=== PATIENT | female | born 1990 | race Caucasian/White ===

== ENCOUNTER 2022-09-18 17:15 | Emergency (ER) | payer OTHER ==
[2022-09-18 17:31] VITALS: BP 123/65
--- NOTE | 2022-09-18 18:07 | ED Physician Documentation ---
PD HPI HEENT - Stated complaint Stated Complaint: COUGH/FEVER - Chief complaint Chief Complaint: Resp - History obtained from History obtained from: Patient - Additional information Additional information: The patient comes to the emergency department chief complaint of escalating cough, fevers at home, and thick green sputum for the last 24 hours. She states she developed a URI about a week ago and felt as though she was getting better, but then cough began to escalate and she began to have a burning pain in her chest and began coughing up having green sputum. She is a former smoker but quit 6 years ago. She states that she has measured some fevers at home but that she was no longer febrile here. She is 25 weeks . No other complaints at this time. She states she has had a lot of respiratory infections. PD PAST MEDICAL HISTORY - Present Medications Home Medications: Ambulatory Orders Medication Instructions Recorded Confirmed Azithromycin [Zithromax] 0 mg PO DAILY #6 tablet 09/18/22 Omeprazole Magnesium 20 mg PO BID 09/18/22 09/18/22 - Allergies Allergies/Adverse Reactions: Allergies Allergy/AdvReac Type Severity Reaction Status Date / Time No Known Drug Allergies Allergy Verified 09/18/22 17:24 PD ED PE NORMAL - Vitals Vital signs reviewed: Yes - General General: Alert and oriented X 3, No acute distress, Well developed/nourished - HEENT HEENT: Atraumatic, PERRL, EOMI, Moist mucous membranes - Neck Neck: Supple, no meningeal sign - Cardiac Cardiac: RRR, No murmur, Strong equal pulses - Respiratory Respiratory: No respiratory distress, Clear bilaterally - Abdomen Abdomen: Soft, Non tender, Non distended - Derm Derm: Normal color, Warm and dry, No rash - Extremities Extremities: No deformity - Neuro Neuro: Alert and oriented X 3 - Psych Psych: Normal mood, Normal affect Results - Vitals Vitals: Oxygen O2 Source Room air - Labs Labs: Laboratory Tests 09/18/22 17:40 Nasal Adenovirus (PCR) NOT DETECTED Nasal B. parapertussis DNA (PCR) NOT DETECTED Nasal Coronavir 229E PCR NOT DETECTED Nasal Coronavir HKU1 PCR NOT DETECTED Nasal Coronavir NL63 PCR NOT DETECTED Nasal Coronavir OC43 PCR NOT DETECTED Nasal Enterovir/Rhinovir PCR DETECTED A Nasal Influenza B PCR NOT DETECTED Nasal Influenza A PCR NOT DETECTED Nasal Parainfluen 1 PCR NOT DETECTED Nasal Parainfluen 2 PCR NOT DETECTED Nasal Parainfluen 3 PCR NOT DETECTED Nasal Parainfluen 4 PCR NOT DETECTED Nasal RSV (PCR) NOT DETECTED Nasal B.pertussis DNA PCR NOT DETECTED Nasal C.pneumoniae (PCR) NOT DETECTED Jonathan Human Metapneumo PCR NOT DETECTED Nasal M.pneumoniae (PCR) NOT DETECTED Nasal SARS-CoV-2 (PCR) NOT DETECTED PD Medical Decision Making - ED course Complexity details: reviewed results, re-evaluated patient, considered differential, d/w patient ED course: Given her fever, thick green sputum which I was able to view a picture of on her phone, and the uptake and cough, I felt the patient should be treated with antibiotics. A prescription was sent to the pharmacy of her choice for this. We have discussed symptomatic management at home and the usual indications for return. Departure - Departure Disposition: 01 Home, Self Care Clinical Impression: Bronchitis Upper respiratory tract infection Qualifiers: URI type: unspecified viral URI Qualified Code(s): J06.9 - Acute upper respira tory infection, unspecified Condition: Stable Instructions: ED Upper Resp Infec Abx Tx, ED Viral Syndrome Prescriptions: Azithromycin [Zithromax] 0 mg PO DAILY #6 tablet Comments: Your lungs sound clear, but given that you have had a sudden uptick in sputum production and the appearance of your sputum, we will go ahead and start you on antibiotics. Your prescription has been electronically transmitted to the [facility] in [place]. You should pick this up tonight or tomorrow morning and start it. Please drink plenty of fluids. You may take Tylenol as needed for fever or other discomforts. Discharge Date/Time: 09/18/22 18:13
[2022-09-18 18:36] LABS: CORONAVIRUS 229E-RESP PCR NOT DETECTED; CORONAVIRUS HKU1-RESP PCR NOT DETECTED; CORONAVIRUS NL63-RESP PCR NOT DETECTED; CORONAVIRUS OC43-RESP PCR NOT DETECTED; HUMAN METAPNEUMOVIRUS NOT DETECTED; SARS-CoV-2 -RESP PCR PANEL NOT DETECTED
[2022-09-18 18:37] LABS: B. PARAPERTUSSIS- RESP PCR PAN NOT DETECTED; B. PERTUSSIS- RESP PCR PANEL NOT DETECTED; C. PNEUMONIAE- RESP PCR PANEL NOT DETECTED; INFLUENZA A- RESP PCR PANEL NOT DETECTED; INFLUENZA B - RESP PCR PANEL NOT DETECTED; M. PNEUMONIAE- RESP PCR PANEL NOT DETECTED; PARAINFLUENZA VIRUS 1 NOT DETECTED; PARAINFLUENZA VIRUS 2 NOT DETECTED; PARAINFLUENZA VIRUS 3 NOT DETECTED; PARAINFLUENZA VIRUS 4 NOT DETECTED; RHINOVIRUS/ENTEROVIRUS DETECTED; RSV- RESP PCR PANEL NOT DETECTED
== END 2022-09-18 18:13 | disposition home or self-care (01) ==
LOC: ED 17:15
DX: J40 Bronchitis, not specified as acute or chronic (principal); J06.9 Acute upper respiratory infection, unspecified; Z20.822 Contact with and (suspected) exposure to COVID-19; Z87.891 Personal history of nicotine dependence
CPT/HCPCS: 87633; 99283

== ENCOUNTER 2022-11-07 08:00 | Outpatient (CLI) | payer OTHER | END 2022-11-07 23:59 | disposition home or self-care (01) | LOC: LAB.WC 08:00 | PROVIDERS: ATTEND Obstetrics & Gynecology | DX: Z36.85 Encounter for antenatal screening for Streptococcus B (principal) | CPT/HCPCS: 87797 ==

== ENCOUNTER 2022-11-07 12:26 | Outpatient (CLI) | payer OTHER ==
[2022-11-07 12:51] LABS: BASOPHILS % (AUTO) 0.3 %; EOSINOPHILS # (AUTO) 0.1 10^3/uL (0.0-0.7); EOSINOPHILS % (AUTO) 0.6 %; HCT - HEMATOCRIT 33.9 % (37.0-47.0); LYMPHOCYTES # (AUTO) 1.8 10^3/uL (1.5-3.5); LYMPHOCYTES % (AUTO) 15.5 %; MEAN CORPUSCULAR HGB CONC 32.4 g/dL (32.0-36.0); MEAN CORPUSCULAR VOLUME 89.4 fL (81.0-99.0); MEAN PLATELET VOLUME 10.9 fL (7.9-10.8); MONOCYTES # (AUTO) 0.5 10^3/uL (0.0-1.0); MONOCYTES % (AUTO) 4.4 %; NEUTROPHILS # (AUTO) 8.8 10^3/uL (1.5-6.6); NEUTROPHILS % (AUTO) 78.1 %; PLT - PLATELET COUNT 252 10^3/uL (130-450); RED BLOOD COUNT 3.79 10^6/uL (4.20-5.40); WHITE BLOOD COUNT 11.3 x10^3/uL (4.8-10.8)
[2022-11-08 06:10] LABS: HBsAG SCREEN Negative (Negative); HCV AB Non Reactive (Non Reactive); HIV SCREEN 4TH GENERATION Non Reactive (Non Reactive)
[2022-11-08 08:10] LABS: RPR Non Reactive (Non Reactive); VARICELLA-ZOSTER AB IGG <135 index (Immune >165)
== END 2022-11-07 12:27 | disposition home or self-care (01) ==
LOC: LAB 12:26
PROVIDERS: ATTEND Obstetrics & Gynecology
DX: Z34.90 Encounter for supervision of normal pregnancy, unspecified, unspecified trimester (principal); Z36.89 Encounter for other specified antenatal screening
CPT/HCPCS: 36415; 85025; 86592; 86762; 86787; 86803; 86850; 86900; 86901; 87340; 87389

== ENCOUNTER 2022-11-22 19:44 | Outpatient (CLI) | payer OTHER ==
--- NOTE | 2022-11-23 00:51 | Ultrasound Report ---
PROCEDURE: OB Detailed Eval INDICATIONS: SUPERVISION OF OUTSIDE/PRIOR DATING DATA: Last menstrual period (LMP): Unknown. First dating scan (date and location): Today 11/22/2022. Estimated date of delivery (MAITE) from first dating scan: 12/26/2022. TECHNIQUE: Real-time scanning was performed of the fetus, with image documentation and biometric measurements. COMPARISON: None. FINDINGS: General: A single living intrauterine gestation is present. Presentation: Transverse Placenta: Placental position is posterior, without previa. Amniotic fluid index: 15.7, within normal limits for gestational age. heart rate: 152 beats per minute. Maternal cervical canal: 5.4 cm long; normal length is 2.5 cm or more. biometrics: Biparietal diameter: 8.7 cm, 35 weeks Head circumference: 32.4 cm, 36 weeks and 4 days Abdominal circumference: 30.6 cm, 34 weeks and 4 days Femur length: 6.5 cm, 33 weeks and 3 days Estimated gestational age from initial scan: not applicable. Composite gestational age from present scan: 35 weeks and 1 day Estimated weight and percentile: 2441.5 g Measurement variability in biometric dating: +/- 10 days from 12-20 weeks gestation, +/- 2 weeks from 20-30 weeks gestation, +/- 3 weeks at 30 weeks gestation or later. Limited anatomic survey due to large gestational age and position. Placental cord insertion is seen and unremarkable. Three-vessel cord is present. Abdominal cord inser tion is seen is unremarkable. Left-sided stomach is present. Spine is grossly normal, but not completely evaluated. Kidneys are wit hin normal limits. Posterior fossa structures are unremarkable. Lateral ventricle measures 7 mm. Nose /lips/profile appear unremarkable on limited evaluation. Bladder appears unremarkable. Ovaries are unremarkable. IMPRESSION: Living intrauterine gestation at an ultrasound age of 35 weeks and 1 day. No priors are available for review. Limited anatomic survey due to large gestational age and position. Reviewed by: Jak Watson MD on 11/23/2022 12:50 AM PDT Approved by: Jak Watson MD on 11/23/2022 12:50 AM PDT Station ID: [id number]
== END 2022-11-22 19:45 | disposition home or self-care (01) ==
LOC: DI 19:44
PROVIDERS: ATTEND Obstetrics & Gynecology
DX: O09.93 Supervision of high risk pregnancy, unspecified, third trimester (principal); Z3A.35 35 weeks gestation of pregnancy

== ENCOUNTER 2022-11-23 09:27 | Outpatient (CLI) | payer OTHER ==
[2022-11-23 09:48] VITALS: BP 123/84
[2022-11-23] MEDS ORDERED: RHO(D) IMMUNE GLOBULIN 300 MCG SYRINGE IM ONE (09:54)
--- NOTE | 2022-11-23 10:18 | PROVIDER PROGRESS NOTE ---
- HPI Chief Complaint: Pain, non-labor Current : Vital Signs Temperature 98.5 F 11/23/22 09:38 Heart Rate 108 H 11/23/22 09:38 Respiratory Rate 22 11/23/22 09:38 Blood Pressure 123/84 H 11/23/22 09:38 Temperature 98.5 F 11/23/22 09:38 Heart Rate 108 H 11/23/22 09:38 Respiratory Rate 22 11/23/22 09:38 Blood Pressure 123/84 H 11/23/22 09:38 O2 Saturation If not protocol: Oxygen Flow, liters/minute - Procedures Service Date of procedure: 11/23/22 (Read 11/23/2022) - Plan Plan: Patient is a 32-year-old G2, P1 at 35 weeks 2 days gestation by 35-week ultrasound presenting to triage for vaginal bulge. She says yesterday she was bearing down and felt a new bulge of tissue. She been constipated for several days and has not found relief from this. Had dating ultrasound yesterday placing her at 35 weeks 2 days, consistent with my bedside ultrasound done at 24 weeks. Will use this MAITE of 12/26/2022. She has good movement, no leaking, no vaginal bleeding. She denies headache, right upper quadrant pain, changes in vision. She does have insufficient care with only 2 OB visits. Physical Exam Constitutional: alert, no acute distress, well hydrated, well developed, well nourished, appropriate dress. Cardiovascular: Regular rate and rhythm. Respiratory: no respiratory distress. Abdomen: nondistended, nontender, no guarding. Psych: affect and mood appropriate, normal interaction, good eye contact. : Mild prolapse anterior and posteriorly. No leaking with Valsalva. SVE: 0/0/-3 NST: FHT: 140 bpm baseline, moderate variability, accelerations present, no decelerations. Reactive NST [place]: Quiescent Assessment and plan 32-year-old G2, P1 at 35 weeks 2 days gestation by 35-week ultrasound with vaginal prolapse 1. Vaginal prolapse: -Discussed the etiology of vaginal prolapse and that this will likely not improve significantly while she is . -Encouraged her to work on her constipation. This may help alleviate the bulge. -Plan to reassess after 2. Constipation -Encourage bowel regimen including stool softener and MiraLAX. Increase dietary fiber. Increase fibrous foods. 3. 35 weeks gestation -Follow-up with [facility] for routine care -Dated by ultrasound yesterday. MAITE 12/26/2022 4. Limited care - labs completed today. OGCT tolerance completed and normal. -A1c completed today. 5. Rh- -RhoGAM received today 6. presentation: -Transverse position last night. Discussed possible external cephalic version if still not cephalic at 37 weeks. -Reiterated the importance of routine visits so we can continue to assess this and her other issues.
[2022-11-23] MEDS: ONDANSETRON 4 MG/2 ML VIAL IVP PRN (10:46)
[2022-11-23] MEDS: RHO(D) IMMUNE GLOBULIN 300 MCG SYRINGE IVP ONE (10:47)
[2022-11-23 11:06] LABS: BASOPHILS % (AUTO) 0.4 %; EOSINOPHILS # (AUTO) 0.1 10^3/uL (0.0-0.7); EOSINOPHILS % (AUTO) 0.5 %; HCT - HEMATOCRIT 32.4 % (37.0-47.0); HGB - HEMOGLOBIN 10.5 g/dL (12.0-16.0); LYMPHOCYTES # (AUTO) 2.2 10^3/uL (1.5-3.5); LYMPHOCYTES % (AUTO) 19.4 %; MEAN CORPUSCULAR HEMOGLOBIN 28.1 pg (27.0-31.0); MEAN CORPUSCULAR HGB CONC 32.4 g/dL (32.0-36.0); MEAN CORPUSCULAR VOLUME 86.6 fL (81.0-99.0); MEAN PLATELET VOLUME 10.1 fL (7.9-10.8); MONOCYTES # (AUTO) 0.8 10^3/uL (0.0-1.0); MONOCYTES % (AUTO) 6.8 %; NEUTROPHILS % (AUTO) 71.7 %; PLT - PLATELET COUNT 327 10^3/uL (130-450); RED BLOOD COUNT 3.74 10^6/uL (4.20-5.40); RED CELL DISTRIBUTION WIDTH 13.5 % (12.0-15.0); WHITE BLOOD COUNT 11.2 x10^3/uL (4.8-10.8)
[2022-11-23 11:19] LABS: ALBUMIN 3.1 g/dL (3.2-5.5); ALBUMIN/GLOBULIN RATIO 0.9 (1.0-2.2); BILIRUBIN,TOTAL 0.5 mg/dL (0.2-1.0); CALCIUM 8.7 mg/dL (8.5-10.3); CREATININE 0.4 mg/dL (0.4-1.0); POTASSIUM 3.6 mmol/L (3.5-5.0); TOTAL PROTEIN 6.5 g/dL (6.7-8.2)
[2022-11-23 21:58] LABS: ESTIMATED AVERAGE GLUCOSE 91 mg/dL (70-100); HEMOGLOBIN A1c% 4.8 % (4.27-6.07)
== END 2022-11-23 12:45 | disposition home or self-care (01) ==
LOC: WFO 09:27 → FBP 09:34 → WFO 12:45
PROVIDERS: ATTEND Obstetrics & Gynecology
DX: O34.83 Maternal care for other abnormalities of pelvic organs, third trimester (principal); N81.10 Cystocele, unspecified; O99.613 Diseases of the digestive system complicating pregnancy, third trimester; K59.00 Constipation, unspecified; Z3A.35 35 weeks gestation of pregnancy
CPT/HCPCS: 59025; 80053; 82950; 83036; 85025; 96374; 96375; 99215

== ENCOUNTER 2022-12-09 21:14 | Outpatient (CLI) | payer OTHER ==
--- NOTE | 2022-12-10 14:42 | Ultrasound Report ---
PROCEDURE: OB F/U or Repeat INDICATIONS: SUPERVISION OF OUTSIDE/PRIOR DATING DATA: Last menstrual period (LMP): Unknown. LMP-based estimated date of delivery (MAITE): Unknown. First dating scan (date and location): 11/22/2022. Estimated date of delivery (MAITE) from first dating scan: 12/26/2022. The below data below was generated using the ultrasound MAITE of 12/26/2022 TECHNIQUE: Real-time scanning was performed of the fetus, with image documentation and biometric measurements. COMPARISON: OB ultrasound 11/22/2022 FINDINGS: General: A single living intrauterine gestation is present. Presentation: Vertex Placenta: Placental position is posterior, without previa. Amniotic fluid index: 19.4 cm, within normal limits for gestational age. heart rate: 150 beats per minute. Maternal cervical canal: 4.7 cm long; normal length is 2.5 cm or more. biometrics: Estimated gestational age from initial scan: 37 weeks 4 days Other: four-chamber heart and outflow tracts are within normal limits IMPRESSION: Single live intrauterine with ultrasound gestational age of 37 weeks 4 days. heart is visualized to be within normal limits. Reviewed by: Monse Moody MD on 12/10/2022 2:40 PM PDT Approved by: Monse Moody MD on 12/10/2022 2:40 PM PDT Station ID: [id number]
== END 2022-12-09 21:15 | disposition home or self-care (01) ==
LOC: DI 21:14
PROVIDERS: ATTEND Obstetrics & Gynecology
DX: O09.33 Supervision of pregnancy with insufficient antenatal care, third trimester (principal); Z3A.37 37 weeks gestation of pregnancy

== ENCOUNTER 2023-08-10 17:45 | Emergency (ER) | payer OTHER ==
[2023-08-10 18:10] VITALS: BP 115/70; O2SAT 100
[2023-08-10] MEDS ORDERED: AMOX/CLAV 875 MG/125 MG TABLET PO STA (18:12)
[2023-08-10] MEDS ORDERED: IBUPROFEN 800 MG TABLET PO STA (18:12)
[2023-08-10] MEDS ORDERED: oxyCODONE 5 MG TABLET PO STA (18:12)
[2023-08-10] MEDS ORDERED: oxyCODONE/ACET 5/325 Prepack 4 PO STA (18:12)
--- NOTE | 2023-08-10 18:13 | ED Physician Documentation ---
PD HPI HEENT - Stated complaint Stated Complaint: TOOTH PX - Chief complaint Chief Complaint: Heent - History obtained from History obtained from: Patient (Severe pain since last night from the right maxillary last molar. No facial swelling or fevers.) PD PAST MEDICAL HISTORY - Past Medical History Past Medical History: Yes Psych: ADD/ADHD Other Past Medical History: Sjorgorens - Past Surgical History Past Surgical History: No - Present Medications Home Medications: Ambulatory Orders Medication Instructions Recorded Confirmed Omeprazole Magnesium 20 mg PO BID 09/18/22 09/18/22 Amox/Clav 875/125 [Augmentin] 1 each PO Q12H #20 tablet 08/10/23 Ibuprofen [Motrin] 600 mg PO Q6H PRN #30 tab 08/10/23 Oxycodone HCl/Acetaminophen 1 - 2 each PO Q6H PRN #14 tablet 08/10/23 [Percocet 5-325 mg Tablet] - Allergies Allergies/Adverse Reactions: Allergies Allergy/AdvReac Type Severity Reaction Status Date / Time bunch Allergy Unknown Verified 11/23/22 10:16 Fish Containing Products Allergy Rash Verified 11/23/22 10:16 kiwi Allergy Unknown Verified 11/23/22 10:16 shellfish derived Allergy Rash Verified 11/23/22 10:16 tree and shrub pollen Allergy Respiratory Verified 11/23/22 10:16 salicylic acid AdvReac Intermediate Rash Verified 12/12/22 05:19 ibuprofen AdvReac Mild Nausea Verified 12/12/22 03:34 - Social History Does the pt smoke?: No Smoking Status: Never smoker PD ED PE NORMAL - Vitals Vital signs reviewed: Yes - General General: Alert and oriented X 3, No acute distress - HEENT HEENT: Other (There is a tender cavity in the right last molar posteriorly. No facial swelling, trismus, sublingual edema.) - Neck Neck: Supple, no meningeal sign, No bony TTP - Cardiac Cardiac: RRR, No murmur - Neuro Neuro: Alert and oriented X 3 Results - Vitals Vitals: Vital Signs - 24 hr 08/10/23 17:57 Temperature 36.7 C Heart Rate 102 H Respiratory 18 Rate Blood Pressure 115/70 O2 Saturation 100 Oxygen O2 Source Room air Departure - Departure Disposition: Home, Self Care Clinical Impression: Pain due to dental caries Condition: Good Record reviewed to determine appropriate education?: Yes Instructions: ED Tooth Pain Prescriptions: Amox/Clav 875/125 [Augmentin] 1 each PO Q12H #20 tablet Ibuprofen [Motrin] 600 mg PO Q6H PRN #30 tab PRN Reason: Pain Oxycodone HCl/Acetaminophen [Percocet 5-325 mg Tablet] 1 - 2 each PO Q6H PRN #14 tablet PRN Reason: pain Comments: I sent your prescription electronically to [facility] in [place]. It is very important that you follow-up with a dentist. When it comes to dental problems like yours, the emergency department can only offer a short-term solution to your long-term problem. I would recommend your first call be to the [facility] tomorrow as they do have active duty dentist there. Otherwise: A couple of low cost options for dental care include: [facility] in [place], calls [phone] for an appointment Or [facility] in [place], call [phone] for an appointment. I am prescribing a short course of narcotic pain medication for you. These are potentially dangerous and addictive medications that should be used carefully. These medications may constipate you. Take an sfep-eid-pdxyxyo stool softener (docusate) twice daily with plenty of water while taking these medications. If you go 24 hours without a bowel movement, take [id number] miralax, per package instructions. Do not drink or drive while taking these medications. If you received narcotic or sedating medications while in the emergency department, do not drive for 24 hours. Store this medication in a safe, secure place and out of reach of children. It is a violation of federal law to give or sell this medication to another person or to use in a manner other than prescribed. The ED will not refill narcotic prescriptions, including prescriptions lost or stolen. To dispose of unwanted medications: 1. [facility] provides a drop box for medication in pill form only (no liquids) 8:00 am to 4:30 p.m. Friday-Friday in the lobby of the [facility], [address] [place] [address]. Empty pills into ziplock bag before disposal. Call [phone] for information. 2.[employer] is a free service available to all [facility] residents. Go to [email or web address] Note that many narcotic pain relievers also contain Tylenol/acetaminophen. Please ensure that your total dose of acetaminophen from all sources does not exceed 3 g (3000 mg) per day. Forms: PCP List
== END 2023-08-10 18:32 | disposition home or self-care (01) ==
LOC: ED 17:45
DX: K08.89 Other specified disorders of teeth and supporting structures (principal)
CPT/HCPCS: 99282; 99283; A9270

== ENCOUNTER 2023-09-01 07:44 | Emergency (ER) | payer OTHER ==
[2023-09-01 08:17] VITALS: BP 105/64; O2SAT 100
--- NOTE | 2023-09-01 08:34 | ED Physician Documentation ---
PD YANDY HEENT - Stated complaint Stated Complaint: RT EAR PX - Chief complaint Chief Complaint: Heent - History obtained from History obtained from: Patient - Additional information Additional information: Patient is a 33-year-old female presenting for evaluation of right ear pain over the past 1 week. Patient states that she pulled a pillow father out of her ear 1 week ago. Since that time she has had some discomfort but it worsened yesterday. She was also recently seen here for dental pain and started on oxycodone and Augmentin for dental infection. She is on day 4 of the antibiotic. She states that after taking a bath yesterday her ear pain worsened.Patient believes that she is also 8 to 9 weeks . She has a history of an intrauterine demise last December at approximately 34 weeks gestation.She reports having ultrasounds done prior to that and reports a concern as she was told by an obstetrics tech that there was a mass they could see that was concerning for cancer. She states that she did not follow-up about this because she forgot. She was following with Dr. Padilla and does plan to establish care with him again for this .Denies vaginal bleeding, abdominal pain. Review of Systems Constitutional: denies: Fever Ears: reports: Ear pain Cardiac: denies: Chest pain / pressure Respiratory: denies: Dyspnea GI: denies: Abdominal Pain : denies: Dysuria PD PAST MEDICAL HISTORY - Past Medical History Past Medical History: Yes Psych: ADD/ADHD - Past Surgical History Past Surgical History: No - Present Medications Home Medications: Ambulatory Orders Medication Instructions Recorded Confirmed Amox/Clav 875/125 [Augmentin] 1 each PO Q12H #20 tablet 08/10/23 09/01/23 Ibuprofen [Motrin] 600 mg PO Q6H PRN #30 tab 08/10/23 09/01/23 Ofloxacin [Ofloxacin Otic drops] 10 drops RIGHTEAR DAILY 7 Days #5 09/01/23 ml - Allergies Allergies/Adverse Reactions: Allergies Allergy/AdvReac Type Severity Reaction Status Date / Time bunch Allergy Unknown Verified 11/23/22 10:16 Fish Containing Products Allergy Rash Verified 11/23/22 10:16 kiwi Allergy Unknown Verified 11/23/22 10:16 shellfish derived Allergy Rash Verified 11/23/22 10:16 tree and shrub pollen Allergy Respiratory Verified 11/23/22 10:16 salicylic acid AdvReac Intermediate Rash Verified 12/12/22 05:19 ibuprofen AdvReac Mild Nausea Verified 12/12/22 03:34 - Social History Does the pt smoke?: No Smoking Status: Never smoker Does the pt drink ETOH?: No Does the pt have substance abuse?: No PD ED PE NORMAL - General General: Alert and oriented X 3, No acute distress, Well developed/nourished - HEENT HEENT: Atraumatic, Moist mucous membranes, Pharynx benign, Other (Left TM intact, right TM intact, right ear canal with erythema and mild swelling) - Neck Neck: Supple, no meningeal sign, No bony TTP - Cardiac Cardiac: RRR, Strong equal pulses - Respiratory Respiratory: No respiratory distress, Clear bilaterally - Derm Derm: Warm and dry - Neuro Neuro: Normal speech Results - Vitals Vitals: Vital Signs - 24 hr 09/01/23 08:09 Temperature 36.5 C Heart Rate 77 Respiratory 16 Rate Blood Pressure 105/64 O2 Saturation 100 Oxygen O2 Source Room air PD Medical Decision Making - ED course ED course: Patient presenting for evaluation of right ear pain over the past week after pulling a father out of it. On exam I do not see signs of a retained foreign body. Her TM is intact. She does have findings of otitis externa and discussed treatment recommendations. I did place an ear wick and will start her on otic antibiotic drops. Patient also reports concern from it which she was told by an obstetrics tech last year when she was . She states that she was told that she has a mass in her uterus that could be concerning for cancer. I reviewed both ultrasound reports that we have in our system along with the worksheet notes written by the ultrasound techs and do not see findings where they mention A mass or cancerous lesion. I recommend close follow-up with Dr. Padilla or her OB of choice as she also reports that she is early on in a . She does not have symptoms today to warrant emergent OB imaging As she is here for her ear pain.Discussed concerning symptoms to return for. Departure - Departure Disposition: 01 Home, Self Care Clinical Impression: Right otitis externa Condition: Stable Instructions: ED Otitis Externa Follow-Up: Yony Padilla MD [Provider Admit Priv/Credential] - (Please call to establish care for this ) Prescriptions: Ofloxacin [Ofloxacin Otic drops] 10 drops RIGHTEAR DAILY 7 Days #5 ml Comments: You have findings of an external ear infection. Your eardrum appears to be intact. I have placed a small ear wick into the ear canal to help keep it open and to allow the antibiotic drops to get further into the ear canal. Please use the antibiotic drops as directed. I have sent the prescription to [facility] in [place]. I would recommend follow-up with your primary care provider in 1 week. In regards to your concerns about prior ultrasounds, I did review the 2 ultrasounds we have here on file and there is no mention of a cancerous lesion or mass. I would recommend establishing care with Dr. Padilla or your OB of choice for this and to also discuss your concerns. Return to the emergency department with any worsening symptoms. Forms: PCP List Discharge Date/Time: 09/01/23 08:52
== END 2023-09-01 08:52 | disposition home or self-care (01) ==
LOC: ED 07:44
DX: O99.891 Other specified diseases and conditions complicating pregnancy (principal); H60.91 Unspecified otitis externa, right ear; Z3A.09 9 weeks gestation of pregnancy
CPT/HCPCS: 99282; 99283

== ENCOUNTER 2023-09-26 08:00 | Outpatient (CLI) | payer OTHER ==
[2023-09-26 18:05] LABS: BILIRUBIN,URINE NEGATIVE (NEGATIVE); GLUCOSE, URINE (UA) NEGATIVE (NEGATIVE); KETONES,URINE (UA) NEGATIVE (NEGATIVE); LEUKOCYTE ESTERASE, URINE SMALL (NEGATIVE); NITRITE,URINE NEGATIVE (NEGATIVE); OCCULT BLOOD,URINE NEGATIVE (NEGATIVE); PROTEIN,URINE TRACE mg/dL (NEGATIVE); UROBILINOGEN,URINE 0.2 (NORMAL) E.U./dL (NORMAL)
[2023-09-26 18:07] LABS: CLARITY,URINE CLOUDY (CLEAR)
[2023-09-26 18:22] LABS: BACTERIA,URINE Many /HPF (None Seen); RBC,URINE 0-5 /HPF (0-5); SQUAMOUS EPITHELIAL CELL,UR MANY Squamous (<= Few); WBC,URINE >25 /HPF (0-5)
[2023-09-26 18:23] LABS: AMORPHOUS SEDIMENT,UR Few /LPF
[2023-09-26 21:19] LABS: CHLAMYDIA TRACHOMATIS DNA NEGATIVE (NEGATIVE); NEISSERIA GONORRHOEAE DNA NEGATIVE (NEGATIVE); TRICHOMONAS VAGINALIS DNA NEGATIVE (NEGATIVE)
== END 2023-09-26 23:59 | disposition home or self-care (01) ==
LOC: LAB.WC 08:00
PROVIDERS: ATTEND Obstetrics & Gynecology
DX: Z34.90 Encounter for supervision of normal pregnancy, unspecified, unspecified trimester (principal); Z36.89 Encounter for other specified antenatal screening
CPT/HCPCS: 81001; 87077; 87086; 87491; 87591; 87661

== ENCOUNTER 2023-11-07 08:33 | Outpatient (CLI) | payer OTHER ==
--- NOTE | 2023-11-08 16:49 | Ultrasound Report ---
PROCEDURE: OB 14+ Weeks INDICATIONS: SUPERVISION OF OUTSIDE/PRIOR DATING DATA: Last menstrual period (LMP): 06/09/2023. LMP-based estimated date of delivery (MAITE): 03/15/2024. First dating scan (date and location): 11/07/2023. Estimated date of delivery (MAITE) from first dating scan: 04/02/2024. TECHNIQUE: Real-time scanning was performed of the fetus, with image documentation and biometric measurements. Endovaginal scanning: Not performed. COMPARISON: None FINDINGS: General: A single living intrauterine gestation is present. Presentation: Variable Placenta: Placental position is anterior, without previa. Amniotic fluid index: 14.7 cm, within normal limits for gestational age. heart rate: 141 beats per minute. Maternal cervical canal: 4.12 cm long; normal length is 2.5 cm or more. biometrics: Biparietal diameter: 4.25 cm, 18 weeks and 6 days Head circumference: 15.8 cm, 18 weeks and 5 days Abdominal circumference: 15 cm, 20 weeks and 2 days Femur length: 3.17 cm, 19 weeks and 6 days Estimated gestational age from initial scan: 19 weeks and 0 days Estimated weight and percentile: 319 2 g Measurement variability for biometric dating: +/- 10 days from 12-20 weeks gestation, +/- 2 weeks fro m 20-30 weeks gestation, +/- 3 weeks for 30 weeks gestation or later. Anatomic survey: Neuro: Ventricles are non-dilated at less than 10 mm. Cisterna magna is normal at 3-11 mm. Cerebel lum is normal in size and morphology. Nuchal skin fold: Normal at less than 6 mm between 14-20 weeks gestational age. Face: Nose and lips, facial profile are normal. Spine: No evidence for spina bifida. Heart: 4-chambered heart is not well seen. Outflow tracts were not assessed. Diaphragm: Diaphragm is intact. Stomach: Left-sided stomach is present. Kidneys: No hydronephrosis. Normal is less than 5 mm in 2nd trimester, less than 7 mm in 3rd trimester. Cord: 3-vessel cord has orthotopic insertion. Bladder: Normal in size. Extremities: All 4 extremities identified. IMPRESSION: 1.Single living intrauterine gestation in variable presentation. Estimated gestational age based on erika martinez's ultrasound is 19 weeks and 0 days. 2.JAQUELINE is within normal limits at 14.7 cm. 3.Four-chamber view and outflow tracts are not well seen. Remainder of the visualized anatomy i s within normal limits. Reviewed by: Kathy Bernal MD on 11/08/2023 4:48 PM PDT Approved by: Kathy Bernal MD on 11/08/2023 4:48 PM PDT Station ID: [id number]
== END 2023-11-07 08:34 | disposition home or self-care (01) ==
LOC: DI 08:33
PROVIDERS: ATTEND Obstetrics & Gynecology
DX: O09.92 Supervision of high risk pregnancy, unspecified, second trimester (principal); Z3A.19 19 weeks gestation of pregnancy

== ENCOUNTER 2023-11-08 10:33 | Outpatient (CLI) | payer OTHER ==
[2023-11-08 10:54] LABS: BASOPHILS % (AUTO) 0.3 %; EOSINOPHILS # (AUTO) 0.2 10^3/uL (0.0-0.7); EOSINOPHILS % (AUTO) 1.4 %; HCT - HEMATOCRIT 37.4 % (37.0-47.0); HGB - HEMOGLOBIN 12.2 g/dL (12.0-16.0); LYMPHOCYTES % (AUTO) 16.9 %; MEAN CORPUSCULAR HEMOGLOBIN 30.1 pg (27.0-31.0); MEAN CORPUSCULAR HGB CONC 32.6 g/dL (32.0-36.0); MEAN CORPUSCULAR VOLUME 92.3 fL (81.0-99.0); MONOCYTES # (AUTO) 0.4 10^3/uL (0.0-1.0); NEUTROPHILS # (AUTO) 9.2 10^3/uL (1.5-6.6); NEUTROPHILS % (AUTO) 77.6 %; PLT - PLATELET COUNT 278 10^3/uL (130-450); RED BLOOD COUNT 4.05 10^6/uL (4.20-5.40); RED CELL DISTRIBUTION WIDTH 13.5 % (12.0-15.0); WHITE BLOOD COUNT 11.8 x10^3/uL (4.8-10.8)
[2023-11-08 11:01] LABS: BILIRUBIN,URINE NEGATIVE (NEGATIVE); GLUCOSE, URINE (UA) NEGATIVE (NEGATIVE); KETONES,URINE (UA) NEGATIVE (NEGATIVE); LEUKOCYTE ESTERASE, URINE NEGATIVE (NEGATIVE); NITRITE,URINE NEGATIVE (NEGATIVE); OCCULT BLOOD,URINE NEGATIVE (NEGATIVE); PROTEIN,URINE NEGATIVE (NEGATIVE); UROBILINOGEN,URINE 0.2 (NORMAL) E.U./dL (NORMAL)
[2023-11-08 11:11] LABS: BACTERIA,URINE Rare /HPF (None Seen); CLARITY,URINE CLEAR (CLEAR); RBC,URINE 0-5 /HPF (0-5); SQUAMOUS EPITHELIAL CELL,UR RARE Squamous (<= Few); WBC,URINE 0-3 /HPF (0-5)
[2023-11-08 11:12] LABS: MUCUS,URINE Few Strands
[2023-11-09 06:08] LABS: HBsAG SCREEN Negative (Negative)
[2023-11-09 10:07] LABS: HIV SCREEN 4TH GENERATION Non Reactive (Non Reactive)
== END 2023-11-08 10:34 | disposition home or self-care (01) ==
LOC: LAB 10:33
PROVIDERS: ATTEND Obstetrics & Gynecology
DX: Z34.90 Encounter for supervision of normal pregnancy, unspecified, unspecified trimester (principal); Z36.89 Encounter for other specified antenatal screening
CPT/HCPCS: 36415; 81001; 85025; 86592; 86762; 86787; 86803; 86850; 86900; 86901; 87086; 87340; 87389

== ENCOUNTER 2023-12-01 08:33 | Emergency (ER) | payer OTHER ==
--- NOTE | 2023-12-01 09:01 | ED Physician Documentation ---
PD HPI CHEST PAIN - Stated complaint Stated Complaint: CHEST PX, LT SHOULDER PX - Chief complaint Chief Complaint: Cardiac - Additional information Additional information: Is a 33-year-old female who is approximately 22 weeks . She is -0-1-1. She had a loss at 38 weeks last time. She is in complaining of funny feeling in her left arm some tingling numbness and accompanied by some brief stabbing substernal chest pain. [place] like there were "thousand tiny knives". At the same time she also felt some decreased movement. Due to her prior loss she was obviously very concerned by this and came to the emergency department. She called Dr. Padilla her OB but has not heard back yet. No fluid loss no pelvic pain no vaginal bleeding. No lower extremity pain or swelling. Does not feel short of breath. Pain mostly with movement of her arms and chest. Review of Systems Constitutional: denies: Fever, Chills Cardiac: denies: Palpitations, Pedal edema, Calf pain Respiratory: denies: Dyspnea PD PAST MEDICAL HISTORY - Past Medical History Past Medical History: Yes [employer]: Other (22 weeks -0-1-1) Psych: ADD/ADHD - Past Surgical History Past Surgical History: No - Present Medications Home Medications: Ambulatory Orders Medication Instructions Recorded Confirmed Amox/Clav 875/125 [Augmentin] 1 each PO Q12H #20 tablet 08/10/23 09/01/23 Ibuprofen [Motrin] 600 mg PO Q6H PRN #30 tab 08/10/23 09/01/23 Ofloxacin [Ofloxacin Otic drops] 10 drops RIGHTEAR DAILY 7 Days #5 09/01/23 ml - Allergies Allergies/Adverse Reactions: Allergies Allergy/AdvReac Type Severity Reaction Status Date / Time bunch Allergy Unknown Verified 12/01/23 08:56 Fish Containing Products Allergy Rash Verified 12/01/23 08:56 kiwi Allergy Unknown Verified 12/01/23 08:56 shellfish derived Allergy Rash Verified 12/01/23 08:56 tree and shrub pollen Allergy Respiratory Verified 12/01/23 08:56 salicylic acid AdvReac Intermediate Rash Verified 12/01/23 08:56 ibuprofen AdvReac Mild Nausea Verified 12/01/23 08:56 - Social History Does the pt smoke?: No Smoking Status: Never smoker Does the pt drink ETOH?: No Does the pt have substance abuse?: No PD ED PE NORMAL - General General: Alert and oriented X 3, No acute distress, Well developed/nourished - HEENT HEENT: Atraumatic - Neck Neck: Supple, no meningeal sign - Cardiac Cardiac: RRR, No murmur - Respiratory Respiratory: No respiratory distress, Clear bilaterally, Other (Anterior chest wall tender to palpation. No crepitus. No deformity.) - Abdomen Abdomen: Non tender - Female Female : Deferred Results - Vitals Vitals: Vital Signs - 24 hr 12/01/23 12/01/23 08:53 09:22 Temperature 36.4 C L Heart Rate 94 87 Respiratory 16 16 Rate Blood Pressure 122/71 119/64 O2 Saturation 100 99 Oxygen O2 Source Room air - EKG (time done) 0915 EKG releavant findings:: EKG personally interpreted by author of this note. Relevant findings are: Normal sinus rhythm rate 87. Normal intervals and axis. No scheming changes noted. - Rads (name of study) cxr Relevant Findings:: Final report received, EMP independent interpretation of test (clear lungs) PD Medical Decision Making - ED course ED course: Vital signs reviewed she is not tachycardic hypoxic or tachypneic. She has r eproducible musculoskeletal type chest pain. Will check EKG and chest x-ray. To reassure her I did do a very brief and limited ED bedside ultrasound which did show movement which was reassuring to her and her . I discussed that she absolutely needs a formal NST that we will send and discussed with her OB for.EKG and chest x-ray are reassuring. She has multiple musculoskeletal type pains. Could be related to radiculopathy not unexpected in . Overall benign presentation and this does not seem like dissection PE or other acute cardiopulmonary catastrophe. She is reassured by hearing her heart tones are 156 and by my very limited bedside ultrasound which did not show movement. However she will contact her OB today to be seen for nonstress test. She understands this is the definitive way to ensure that her feeling of decreased movement represents nothing serious. She is comfortable making that call and going straight there after this. Departure - Departure Disposition: 01 Home, Self Care Clinical Impression: Chest wall pain, Instructions: ED Preg Established Normal Sxs, ED Chest Pain Atypical Unkn Cause Comments: As a mention, your heart tones are reassuring and my very brief limited ultrasound did show that your baby is moving. However a nonstress test with your OB doctor is the definitive way to assure that all is well with your baby since this is obviously a big concern. Please call Dr. Padilla office to arrange that in an expeditious manner. Forms: PCP List
--- NOTE | 2023-12-01 09:31 | XRAY Report ---
PROCEDURE: Chest 1V INDICATIONS: stabbing CP, TECHNIQUE: One view of the chest was acquired. COMPARISON: None. FINDINGS: Surgical changes and devices: None. Lungs and pleura: No airspace consolidation or pleural effusion. Mediastinum: Normal heart size Bones and chest wall: Unremarkable IMPRESSION: Single view radiograph. No acute abnormality seen. Reviewed by: Jak Watson MD on 12/01/2023 9:29 AM PDT Approved by: Jak Watson MD on 12/01/2023 9:29 AM PDT Station ID: [id number]
[2023-12-01 09:33] VITALS: BP 119/64; O2SAT 99
== END 2023-12-01 10:10 | disposition home or self-care (01) ==
LOC: ED 08:33
DX: O26.892 Other specified pregnancy related conditions, second trimester (principal); R07.89 Other chest pain; Z3A.22 22 weeks gestation of pregnancy
CPT/HCPCS: 93005; 99283

== ENCOUNTER 2024-02-02 12:18 | Outpatient (CLI) | payer OTHER ==
--- NOTE | 2024-02-02 19:41 | Ultrasound Report ---
PROCEDURE: OB Follow up INDICATIONS: SUPERVISION OF OUTSIDE/PRIOR DATING DATA: Last menstrual period (LMP): 06/09/2023. LMP-based estimated date of delivery (MAITE): 03/15/2024. First dating scan (date and location): 11/06/1929. Estimated date of delivery (MAITE) from first dating scan: 04/02/2024. The below data below was generated using the ultrasound MAITE of 04/02/2024 TECHNIQUE: Real-time scanning was performed of the fetus, with image documentation and biometric measurements. Endovaginal scanning: Not performed. COMPARISON: 11/07/2023 FINDINGS: General: A single living intrauterine gestation is present. Presentation: Vertex Placenta: Placental position is anterior to the left, without previa. Amniotic fluid index: 13.7 cm, within normal limits for gestational age. heart rate: 124 beats per minute. Maternal cervical canal: 5.1 cm long; normal length is 2.5 cm or more. biometrics: Biparietal diameter: 7.8 cm, 31 weeks 3 days, 41st percentile Head circumference: 29.4 cm, 32 weeks 3 days, 41st percentile Abdominal circumference: 27.2 cm, 31 weeks 2 days, 44th percentile Femur length: 6.3 cm, 32 weeks 4 days, 67th percentile Estimated gestational age from initial scan: 31 weeks 3 days Composite gestational age from present scan: 32 weeks 0 days Estimated weight and percentile: 1843 g, 51st percentile Measurement variability in biometric dating: +/- 10 days from 12-20 weeks gestation, +/- 2 weeks from 20-30 weeks gestation, +/- 3 weeks at 30 weeks gestation or more. Other: Not applicable. IMPRESSION: Living third trimester intrauterine with no sonographic evidence of complications. Current ultrasound age corresponds to clinical age. Reviewed by: Raul Madison MD on 02/02/2024 7:40 PM PDT Approved by: Raul Madison MD on 02/02/2024 7:40 PM PDT Station ID: [id number]
== END 2024-02-02 12:19 | disposition home or self-care (01) ==
LOC: DI 12:18
PROVIDERS: ATTEND Obstetrics & Gynecology
DX: O09.293 Supervision of pregnancy with other poor reproductive or obstetric history, third trimester (principal)

== ENCOUNTER 2024-02-20 16:05 | Outpatient (CLI) | payer OTHER ==
--- NOTE | 2024-02-20 19:32 | Ultrasound Report ---
PROCEDURE: OB Biophysical Profile INDICATIONS: SUPERVISION OF OUTSIDE/PRIOR DATING DATA: Last menstrual period (LMP): 06/09/2023. LMP-based estimated date of delivery (MAITE): 03/15/2024. First dating scan (date and location): 11/07/2023. Estimated date of delivery (MATIE) from first dating scan: 04/02/2024. The below data below was generated using the ultrasound MAITE of 04/02/2024 TECHNIQUE: Real-time scanning was performed of the fetus, with image documentation. Biophysical pro file was also obtained. Endovaginal scanning: Not performed COMPARISON: OB ultrasound 02/02/2024 FINDINGS: General: A single living intrauterine gestation is present. Presentation: Vertex Placenta: Placental position is anterior, without previa. Amniotic fluid index: 19.3 cm, normal for gestational age. heart rate: 135 beats per minute. Maternal cervical canal: Not well visualized. Estimated gestational age from initial scan: 34 weeks 0 days Biophysical profile: Tone: 2 points. Movement: 2 points. Respiration: 2 points. Largest pocket of fluid: 2 points. IMPRESSION: 1.Single live intrauterine at 34 weeks 0 days gestation. 2.Biophysical profile score is 8 of 8. Reviewed by: Mati Mayorga MD on 02/20/2024 7:31 PM PDT Approved by: Mati Mayorga MD on 02/20/2024 7:31 PM PDT Station ID: [id number]
== END 2024-02-20 16:06 | disposition home or self-care (01) ==
LOC: DI 16:05
PROVIDERS: ATTEND Obstetrics & Gynecology
DX: O09.293 Supervision of pregnancy with other poor reproductive or obstetric history, third trimester (principal); Z3A.34 34 weeks gestation of pregnancy

== ENCOUNTER 2024-03-09 08:00 | Outpatient (CLI) | payer OTHER | END 2024-03-09 23:59 | disposition home or self-care (01) | LOC: LAB.WC 08:00 | PROVIDERS: ATTEND Obstetrics & Gynecology | DX: O09.293 Supervision of pregnancy with other poor reproductive or obstetric history, third trimester (principal) | CPT/HCPCS: 87797 ==

== ENCOUNTER 2024-03-17 14:16 | Inpatient (IN) | payer OTHER ==
[2024-03-17 16:27] LABS: BASOPHILS # (AUTO) 0.1 10^3/uL (0.0-0.1); BASOPHILS % (AUTO) 0.4 %; EOSINOPHILS # (AUTO) 0.1 10^3/uL (0.0-0.7); EOSINOPHILS % (AUTO) 0.9 %; HGB - HEMOGLOBIN 8.9 g/dL (12.0-16.0); LYMPHOCYTES # (AUTO) 2.6 10^3/uL (1.5-3.5); LYMPHOCYTES % (AUTO) 18.5 %; MEAN CORPUSCULAR HEMOGLOBIN 24.3 pg (27.0-31.0); MEAN CORPUSCULAR HGB CONC 30.7 g/dL (32.0-36.0); MEAN CORPUSCULAR VOLUME 79.2 fL (81.0-99.0); MONOCYTES # (AUTO) 0.8 10^3/uL (0.0-1.0); MONOCYTES % (AUTO) 5.5 %; NEUTROPHILS # (AUTO) 10.3 10^3/uL (1.5-6.6); NEUTROPHILS % (AUTO) 73.6 %; PLT - PLATELET COUNT 275 10^3/uL (130-450); RED BLOOD COUNT 3.66 10^6/uL (4.20-5.40)
[2024-03-17 16:35] LABS: ALBUMIN 3.2 g/dL (3.2-5.5); ALBUMIN/GLOBULIN RATIO 1.2 (1.0-2.2); BILIRUBIN,TOTAL 0.4 mg/dL (0.2-1.0); CALCIUM 8.6 mg/dL (8.5-10.3); CREATININE 0.5 mg/dL (0.6-1.3); POTASSIUM 3.5 mmol/L (3.5-4.5); TOTAL PROTEIN 5.9 g/dL (6.4-8.9)
[2024-03-17] MEDS ORDERED: OXYTOCIN/SODIUM CHLORIDE 500 ML IV PRN (16:51)
[2024-03-17] MEDS: miSOPROStoL 100 MCG TABLET VG SCH (16:51)
[2024-03-17] MEDS ORDERED: TERBUTALINE 1 MG/ML VIAL SUBQ PRN (16:51)
[2024-03-17] MEDS ORDERED: LACTATED RINGERS 1,000 ML IV PRN (16:51)
[2024-03-17] MEDS ORDERED: SODIUM CHLORIDE FLUSH 0.9% 10 ML SYRINGE IVP PRN (16:51)
[2024-03-17] MEDS ORDERED: LABETALOL 20 MG/4 ML SYRINGE IVP PRN ×3 (16:51)
[2024-03-17] MEDS ORDERED: lidocaine 1% 20 ML MDV ID PRN (16:51)
[2024-03-17] MEDS ORDERED: ACETAMINOPHEN 500 MG TABLET PO PRN (16:51)
[2024-03-17] MEDS ORDERED: miSOPROStoL 200 MCG TABLET BC PRN (16:51)
[2024-03-17] MEDS ORDERED: hydrALAZINE INJ 20 MG/ML VIAL IVP PRN ×2 (16:51)
[2024-03-17] MEDS ORDERED: METHYLERGONOVINE 0.2 MG/ML VIAL IM PRN (16:51)
[2024-03-17] MEDS ORDERED: NIFEdipine 10 MG CAPSULE PO PRN (16:51)
[2024-03-17] MEDS ORDERED: TRANEXAMIC ACID IN NACL 1,000 MG/100 ML BAG IV PRN (16:51)
[2024-03-17] MEDS ORDERED: fentaNYL 100 MCG/2 ML VIAL IVP PRN (16:51)
[2024-03-17] MEDS ORDERED: miSOPROStoL 200 MCG TABLET PR PRN (16:51)
--- NOTE | 2024-03-17 16:53 | HISTORY & PHYSICAL EXAMINATION ---
Admit History - Smoking Status: Never smoker - Mother's Labs Mother's Blood Type: positive: B Mother's RH: positive: Negative GBS: positive: Group B Step Negative Rubella Status: positive: Immune - Other Maternal History Other Maternal History: HPI: Patient is a 33-year-old -0-0-1 at 37 weeks 5 days gestation presented today for induction of labor. She has good movement. Denies loss of fluid. No HARDEN/BV or RUQP. No vaginal bleeding. Denies nausea and vomiting. Denies urinary urgency or dysuria. All other symptoms reviewed and were negative except per HPI. Course History of IUFD at 37 weeks -workup negative. No autopsy performed. Placenta did show some growth of Enterococcus. Placental sample sent for chromosome analysis, but no cells were viable.Declined APLAS testing at the last , but open to testing now. -Will refer to [facility]. -Plan for surveillance at 32 weeks. FOB: Mati, bruce Koehler High Risk social situation -Very stressful with Severely autistic son, Bret. Requiring a lot of resources and putting a strain on work for Mati. Fritz is in foster care now because of his high needs. feels they are not taking good enough care of him. not eating and needed PEG tube. Now placed with RN as in-home caregiver. Family expecting custody after current health issues improve. 2 yr waiting list to get into [facility] to get a diagnosis. Very stressful. hoping for hardship discharge. lots of legal issues. no support from family. Vasovagal syncope -Care with blood draws. Managing symptoms well. will refer for cardiology to evaluate for POTS. LMP: 06/09/2023 MAITE by LMP: 03/15/2024 US: 11/07/2023 not c/w LMP Final MAITE: 04/02/2024 Pre- Weight: 182 BMI: 29.5 Blood type: B- RHoGAM Given 03/01 Antibody Screen: Negative CBC: PLT 278 HCT 37.4 HGB 12.2 RUB: Immune VZV: non immune HBsAg: Negative HepC: NR RPR/AB-EIA: NR HIV: NR Flu: out of season Covid: out of season PAP:09/04/22 normal GC/CT: Negative HSV: denies self/partner Genetic testing: [id number] and AFP ordered, not done. FAS: 11/07/23 Placenta: Anterior Cord: 3VC JAQUELINE: 14.7cm EFW: 319 2g 50gm OGCT:reminded 02/18 3HR GTT: TDAP:declined Breast Pump:01/19 2nd Antibody screen:reminded 02/18 3rd trimester CBC:reminded 02/18 GBS: Negative Delivery plan: 37-week IOL for history of IUFD, scheduled 08 on 03/17 Contraception: Unsure PMH Hiatal hernia Chronic nausea ADHD PSH Colonoscopy EGD OB History [G P ] SH Denies tobacco, alcohol. Using marijuana for nausea. Family History Mother: Allergies, anxiety, hyperlipidemia, thyroid disorder Allergies Latex Promethazine: Burning sensation, vomiting Fish/shellfish Malik/kiwi Medications Sertraline 75 mg vitamins Physical exam: General: Alert, oriented, no acute distress Head: Normal cephalic atraumatic Eyes: PERRLA, extraocular motions intact. Respiratory: Normal rate of respiration. No accessory muscle use, normal respiratory effort. Cardiovascular: Regular rate and rhythm Abdomen: Gravid, nontender, nondistended Extremities: Normal range of motion Neuro: Oriented x3. Normal movements Psych: Appropriate mood and affect. Normal judgment and insight SVE: 0/50/-3 FHT: 135 bpm baseline, moderate variability, accelerations present, no decelerations. [place]: Quiescent Plan 33-year-old -0-0-1 at 37 weeks 5 days gestation submitted for induction of labor secondary to history of IUFD at 37 weeks 1. Induction of labor -Epidural at patient's request, -Cervical ripening with misoprostol. Anticipate admit if successful cervical ripening 2. History of IUFD at term -Previous very traumatic and IUFD at 37 weeks. Has had surveillance in the third trimester. 3. Depression/anxiety -Restarted sertraline. 4. Marijuana use -Using for nausea 5. Rh-: -Did not get third trimester labs, so no antibody screening. Did receive RhoGAM at 35 weeks. - HPI Current EDU 04/02/24 Gestation 37 Weeks and 5 Days 3 Vital Signs Temperature 97.9 F 03/17/24 16:17 Temperature 97.9 F 03/17/24 16:17 Heart Rate Respiratory Rate Blood Pressure O2 Saturation If not protocol: Oxygen Flow, liters/minute - NST Procedure NST Procedure Start Time 09:43 Stop Time 10:32 Meds/Allgy - Home Medications Home Medications: Ambulatory Orders Medication Instructions Recorded Confirmed Omeprazole 20 mg PO QDAC 03/17/24 03/17/24 168/Iron/Folic/Omega3 1 each PO DAILY 03/17/24 03/17/24 [One-A-Day -1 Softgel] Sertraline [Zoloft] 75 mg PO DAILYWM 03/17/24 03/17/24 - Allergies Allergies/Adverse Reactions: Allergies Allergy/AdvReac Type Severity Reaction Status Date / Time malik Allergy Unknown Verified 12/01/23 08:56 Fish Containing Products Allergy Rash Verified 12/01/23 08:56 kiwi Allergy Unknown Verified 12/01/23 08:56 shellfish derived Allergy Rash Verified 12/01/23 08:56 tree and shrub pollen Allergy Respiratory Verified 12/01/23 08:56 salicylic acid AdvReac Intermediate Rash Verified 12/01/23 08:56 ibuprofen AdvReac Mild Nausea Verified 12/01/23 08:56 Physical - Abdominal Exam Vital Signs: Temp Pulse Resp BP Pulse Ox O2 Flow Rate 97.9 F 03/17/24 16:17 Plan for Labor - Plan For Labor I expect patient to be DC'd or transferred within 96 hours.: Yes
[2024-03-17] MEDS ORDERED: SODIUM CHLORIDE FLUSH 0.9% 10 ML SYRINGE IVP SCH (17:00)
--- NOTE | 2024-03-17 17:30 | PHARMACY PROGRESS NOTE ---
- Best Possible Medication History Admit Date and Time: Processed by: Pharmacy (Medication Reconciliation completed by Bsa/Aml Compliance OfficerShukri) Medications reviewed in ED?: No Medication History completed: Yes Patient Interview: Completed As the person ultimately responsible for medication therapy, providers are able to order a medication from an existing home medication list in [facility] via the "Reconcile Routine" prior to Confirmation of that medication by information support project manager. Such practice is discouraged except when the physician, in their clinical judgment, deems that a medical need exists for a medication without regard to previous use.
[2024-03-18] MEDS: ONDANSETRON ODT 4 MG TABLET TL PRN (07:36)
--- NOTE | 2024-03-18 09:07 | PROVIDER PROGRESS NOTE ---
Labor Progress Note - Uterine Monitoring Uterine Monitoring Mode: positive: External toco Contraction Frequency (min/apart): Irregular - Monitoring Monitor Mode: positive: External ultrasound Heart Rate Baseline: 135 Heart Rate Variability: positive: Moderate (6-25 bmp) Accelerations: positive: Present, 15x15 Decelerations: positive: None Strip Review: positive: Category I - Vaginal Exam Dilation (in cm): 3 Effacement (%): 20 Station: -3 - Labor Progress Note Labor Progress Note/Additional Text: Cervix still long but amenable to cervical ripening balloon. Placed after education and agreement from patient. Plan to start oxytocin 4 hours after last misoprostol use. Using nitrous for pain control.Anticipate .
[2024-03-18] MEDS: SERTRALINE 50 MG TABLET PO SCH (09:29)
[2024-03-18] MEDS: LACTATED RINGERS 1,000 ML IV SCH (09:29)
[2024-03-18] MEDS ORDERED: OXYTOCIN/SODIUM CHLORIDE 500 ML IV SCH (09:30)
[2024-03-18] MEDS: OXYTOCIN/SODIUM CHLORIDE 500 ML IV SCH (09:31)
[2024-03-18] MEDS: OXYTOCIN 10 UNIT/ML VIAL IM PRN (16:38)
[2024-03-18] MEDS ORDERED: ONDANSETRON 4 MG/2 ML VIAL IVP PRN (18:04)
[2024-03-18] MEDS ORDERED: SIMETHICONE CHEW 80 MG TABLET PO PRN (18:04)
[2024-03-18] MEDS ORDERED: WITCH HAZEL/GLYCERIN 1 PAD TOP PRN (18:04)
[2024-03-18] MEDS ORDERED: DOCUSATE SODIUM 100 MG CAPSULE PO PRN (18:04)
[2024-03-18] MEDS ORDERED: CALCIUM CARBONATE CHEW 500 MG TABLET PO PRN (18:04)
--- NOTE | 2024-03-18 18:10 | DELIVERY NOTE ---
Delivery Note - Labor Labor: positive: Augmented by oxytocin - Delivery Method Delivery Method: positive: Spontaneous vaginal delivery - Cervical Ripening Method Cervical Ripening Method: positive: Misoprostil - Presentation Presentation: positive: KISHA - left occiput anterior - Nuchal Cord Nuchal Cord: positive: None - Anesthetic Anesthetic Type: - [place]: positive: Placed in direct skin contact with mother, Warmer used, Other (See hebrew teacher H&P) [place] sex: positive: Female - Cord Cord: positive: 3 vessels - Placenta Placenta: positive: Intact - Estimated Blood Loss Estimated Blood Loss (in cc): 400 - Post Delivery Events Post Delivery Events: positive: No post delivery events - Delivery Comments (Free Text/Narrative) Delivery Comments (Free Text/Narrative): Preoperative Diagnoses 37 weeks gestation History of 37-week IUFD Rh- Induction of labor Postoperative Diagnoses Same Delivery of live martinez Status post spontaneous vaginal delivery Summary Patient was admitted at 37 weeks 5 days gestation for induction of labor. She had a history of 37-week IUFD and was worried about the health of this baby. We discussed 37 to 39-week induction of labor and increased risk prior to 39 weeks, and balance this with the risk of repeat IUFD. She elected for induction of labor at time of previous IUD. She presented and received 4 doses misoprostol then a cervical ripening balloon. Oxytocin was then started and progressed to 8 cm and had amniotomy performed with clear fluid. She then progressed quickly to complete and ready to push. She used nitrous oxide for pain control. Delivery Summary: Patient was placed in the dorsal lithotomy position. Upon maternal pushing the head was delivered atraumatically followed by the anterior shoulder, posterior shoulder, then the remainder of the infant's body. A female was delivered with APGARS of 8 at 1 minute and 8 at 5 minutes. The was placed on its mother's chest. After the cord finished pulsating, the umbilical cord was clamped times two and cut. initially did well, but was taken to the warmer for further assessment. See hebrew teacher note for details. The placenta delivered intact with three vessel cord. Placenta was not sent to pathology. Thirty units of Pitocin were added to the IV fluid and allowed to run freely. Uterine massage was performed until uterus was deemed firm. Upon inspection of the perineum, vagina and cervix were intact. Uterus again massaged and found to be firm. While working with a , she had a gush of blood and had some uterine atony. At that time her IV site was examined and found to be displaced, so the oxytocin was stopped and she received IM oxytocin which resolved your anatomy and bleeding. Needle and sponge counts were correct. Patient was stable and allowed to recover in L&D room. was stable and remained in room with mother. weight is pending at this time.
[2024-03-18] MEDS: ACETAMINOPHEN 500 MG TABLET PO SCH (18:22)
[2024-03-18] MEDS: IBUPROFEN 600 MG TABLET PO SCH (18:22)
[2024-03-18] MEDS ORDERED: LACTATED RINGERS 1,000 ML IV SCH (19:00)
[2024-03-19] MEDS ORDERED: RHO(D) IMMUNE GLOBULIN 300 MCG SYRINGE IM ONE (11:26)
[2024-03-19 11:31] LABS: BASOPHILS # (AUTO) 0.1 10^3/uL (0.0-0.1); BASOPHILS % (AUTO) 0.4 %; EOSINOPHILS # (AUTO) 0.2 10^3/uL (0.0-0.7); EOSINOPHILS % (AUTO) 1.1 %; LYMPHOCYTES # (AUTO) 2.2 10^3/uL (1.5-3.5); LYMPHOCYTES % (AUTO) 15.8 %; MEAN CORPUSCULAR HEMOGLOBIN 24.3 pg (27.0-31.0); MEAN CORPUSCULAR VOLUME 78.4 fL (81.0-99.0); MEAN PLATELET VOLUME 10.4 fL (7.9-10.8); MONOCYTES # (AUTO) 0.9 10^3/uL (0.0-1.0); MONOCYTES % (AUTO) 6.5 %; NEUTROPHILS # (AUTO) 10.2 10^3/uL (1.5-6.6); NEUTROPHILS % (AUTO) 75.2 %; PLT - PLATELET COUNT 266 10^3/uL (130-450); RED CELL DISTRIBUTION WIDTH 15.9 % (12.0-15.0); WHITE BLOOD COUNT 13.6 x10^3/uL (4.8-10.8)
[2024-03-19] MEDS: RHO(D) IMMUNE GLOBULIN 300 MCG SYRINGE IM ONE (14:32)
--- NOTE | 2024-03-19 15:50 | PROVIDER PROGRESS NOTE ---
Subjective - Prog Note Date Prog Note Date: 03/19/24 - Subjective Subjective: S: Reports feeling well today. Tolerating regular diet. Ambulating without difficulty, denies dizziness, SOB. Reports lochia has decreased significantly. Planning to breast feed and supplement with formula so dad can feed as well. Reports doesn't usually respond well to breast pump. Urinating without difficulty. She is undecided if she would like to go home today or not. O: VS reviewed Gen: NAD Chest: non labored respirations Abd: soft, non tender, fundus firm Ext: no LE edema, no evidence of DVT A/P: 33 yo : - S/p - Rh neg - H/o depression anxiety - H/o IUFD - Complex social situation at home, son in foster care - Anemia in , H/H stable today, asymptomatic - Overall doing well - Rhogam ordered - Continue sertraline, close follow up - Discussed continue Fe supplementation at discharge for anemia - May discharge home later today if desired Trisha Ellis MD Objective - Vital Signs/Intake & Output Reviewed Vital Signs: Yes Vital Signs: Vital Signs x48h Temp Pulse Resp BP Pulse Ox 03/19/24 12:32 98.2 F 65 16 111/62 99 03/19/24 09:23 97.7 F 67 20 107/71 98 Intake & Output: Intake & Output 03/16/24 03/17/24 03/18/24 03/19/24 23:59 23:59 23:59 23:59 Intake Total 1443.033 Balance 1443.033 - Lab Results Fish Bones: 03/19/24 11:17 03/17/24 16:00 Other Labs: Lab Results x24hrs 03/19/24 03/18/24 Range/Units 11:17 22:38 WBC 13.6 H (4.8-10.8) x10^3/uL RBC 3.70 L (4.20-5.40) 10^6/uL Hgb 9.0 L (12.0-16.0) g/dL Hct 29.0 L (37.0-47.0) % MCV 78.4 L (81.0-99.0) fL MCH 24.3 L (27.0-31.0) pg MCHC 31.0 L (32.0-36.0) g/dL RDW 15.9 H (12.0-15.0) % Plt Count 266 (130-450) 10^3/uL MPV 10.4 (7.9-10.8) fL Neut # (Auto) 10.2 H (1.5-6.6) 10^3/uL Lymph # (Auto) 2.2 (1.5-3.5) 10^3/uL [place] # (Auto) 0.9 (0.0-1.0) 10^3/uL Eos # (Auto) 0.2 (0.0-0.7) 10^3/uL Baso # (Auto) 0.1 (0.0-0.1) 10^3/uL Absolute Nucleated RBC 0.00 x10^3/uL Nucleated RBC % 0.0 /100WBC Blood Type B NEGATIVE Weak D (Du) WEAK-D NEGATIVE Maternal Bleed NEGATIVE (NEGATIVE)
--- NOTE | 2024-03-19 17:36 | DISCHARGE SUMMARY ---
Discharge Summary Admit Date: 03/17/24 Discharge Date: 03/19/24 Discharging Provider: Trisha Ellis MD - HOSPITAL COURSE Hospital Course: Admission Diagnosis: - SIUP at 37w5d - GBS neg - Rh neg - Rubella immune - Varicella nonimmune - H/o IUFD - Complex social situation with son in foster care - Gestational anemia Discharge Diagnosis: - Same, delivered Procedures: , EBL 400cc Hospital Course: Maynor presented at 37w5d for IOL due to h/o IUFD. She received misoprostol followed by cervical ripening balloon, pitocin, and amniotomy. She had an uncomplicated with no lacerations. course was uncomplicated. LAB & IMAGING STUDIES: See below PLAN: Plan for discharge home with follow up in clinic in 1 week. Discussed OK for virtual visit if desired. Reviewed home care instructions and medications. Patient counseled regarding signs and symptoms of infection, excessive bleeding, vaginal rest and activity restrictions. Contraceptive plans to be formalized at visit. - ALLERGIES Allergies/Adverse Reactions: Allergies Allergy/AdvReac Type Severity Reaction Status Date / Time bunch Allergy Unknown Verified 12/01/23 08:56 Fish Containing Products Allergy Rash Verified 12/01/23 08:56 kiwi Allergy Unknown Verified 12/01/23 08:56 shellfish derived Allergy Rash Verified 12/01/23 08:56 tree and shrub pollen Allergy Respiratory Verified 12/01/23 08:56 salicylic acid AdvReac Intermediate Rash Verified 12/01/23 08:56 ibuprofen AdvReac Mild Nausea Verified 12/01/23 08:56 - MEDICATIONS Home Medications: Ambulatory Orders Medication Instructions Recorded Confirmed Omeprazole 20 mg PO QDAC 03/17/24 03/17/24 168/Iron/Folic/Omega3 1 each PO DAILY 03/17/24 03/17/24 [One-A-Day -1 Softgel] Sertraline [Zoloft] 75 mg PO DAILYWM 03/17/24 03/17/24 - LABS Result Diagrams: 03/19/24 11:17 03/17/24 16:00 - FOLLOW UP Follow Up: Follow up in clinic in 1 week.
[2024-03-19 22:03] VITALS: BP 109/68; O2SAT 98
--- NOTE | 2024-03-19 23:38 | Labor Flowsheet ---
Labor Flowsheet Datetime Report Generated by CPN: 03/19/2024 23:38 Datetime: 03/19/2024 20:58 VITAL SIGNS NBP Sys/Esme/Mean (mmHg): 109 : 54 : 67 Pulse: 73 Datetime: 03/18/2024 19:00 Stage of : Datetime: 03/18/2024 16:16 Respirations: 16 Datetime: 03/18/2024 16:14 UTERINE ACTIVITY Monitor Mode: External Frequency (min): 2 Quality: Strong Duration (sec): 50-70 Pattern: Normal: <= 5 Contractions in 10 Minutes Resting Tone (Palpate): Relaxed Comments: FHR 135 in between pushng. pt pulling leg back with couching. pushing with ctx Datetime: 03/18/2024 16:10 VAGINAL EXAM Dilatation (cm): 9.5 STAGE 2 Pushing: Coached on Pushing; Urge to Push Pushing Position: Pushing with Contractions Pushing Progress: Descent with Pushing Datetime: 03/18/2024 16:00 ASSESSMENT A Monitor Mode: Cutting Machine Tender Interventions for FHR: Ultrasound Adjusted FHR Baseline Rate : 135 Variability: Minimal - Undetectable to <=5 bpm Accelerations: None Decelerations: None Category: Category II Patient Position/Activity: Left Extreme Datetime: 03/18/2024 15:51 LaborFlag: Labor Datetime: 03/18/2024 15:45 PAIN Pain Coping: Breathing Through Contractions Pain Assessment Comments: nitrous still in use Comfort Measures: Breathing/Relaxation; Coaching; Hot Shower/Tub/Spa Patient Care Comments: peanut ball Datetime: 03/18/2024 15:30 [facility] Baseline Changes: No Baseline Change Effacement (%): 80 Station: -2 Exam by: dr ramirez Membrane Status: Ruptured Membranes Rupture Method: Artificial Amniotic Fluid Color: Clear Amniotic Fluid Amount: Moderate Amniotic Fluid Odor: Normal Oxygen Method: Room Air Datetime: 03/18/2024 15:16 Cervix, Consistency: Soft Cervix, Position: Anterior Datetime: 03/18/2024 15:15 Monitor Interventions for UA: [place] Adjusted Datetime: 03/18/2024 13:00 Contraction Comments: unable to assess Datetime: 03/18/2024 12:59 Vaginal Exam Comments: ballon fell out Datetime: 03/18/2024 11:35 SpO2 (%): 98 Datetime: 03/18/2024 11:09 MEDICATIONS Pitocin (milliunits): Increased to @ 6 Datetime: 03/18/2024 09:27 PATIENT CARE IV/Blood Work: IV Infusing per Order Datetime: 03/18/2024 08:10 Cervical Ripening Agents: [place] Balloon Medication Comments: 80/40 Datetime: 03/18/2024 08:05 Vaginal Bleeding: None Datetime: 03/18/2024 08:00 COMMUNICATION Communication: Provider at Bedside Communication Comments: Dr Randy Datetime: 03/18/2024 07:33 Temperature (C): 37.0 Temperature Route: Oral
== END 2024-03-19 23:20 | disposition home or self-care (01) | DRG 806 ==
LOC: WFO 14:16 → FBP 14:18 → UNDOADMOB 16:51 → FBP 17:39 → WFO 17:39 → OBSVTOIN 03-18 09:21
PROVIDERS: ADMIT Obstetrics & Gynecology; ATTEND Obstetrics & Gynecology
PROC: 10E0XZZ Delivery of Products of Conception, External Approach (ICD-10-PCS; principal; 2024-03-18)
PROC: 10907ZC Drainage of Amniotic Fluid, Therapeutic from Products of Conception, Via Natural or Artificial Opening (ICD-10-PCS; 2024-03-18)
PROC: 3E033VJ Introduction of Other Hormone into Peripheral Vein, Percutaneous Approach (ICD-10-PCS; 2024-03-18)
PROC: 3E0DXGC Introduction of Other Therapeutic Substance into Mouth and Pharynx, External Approach (ICD-10-PCS; 2024-03-18)
PROC: 0U7C7ZZ Dilation of Cervix, Via Natural or Artificial Opening (ICD-10-PCS; 2024-03-18)
PROC: 3E0P7VZ Introduction of Hormone into Female Reproductive, Via Natural or Artificial Opening (ICD-10-PCS; 2024-03-18)
DX: O99.02 Anemia complicating childbirth (principal); O72.1 Other immediate postpartum hemorrhage; Z37.0 Single live birth; O99.324 Drug use complicating childbirth; F12.90 Cannabis use, unspecified, uncomplicated; D64.89 Other specified anemias; Z3A.37 37 weeks gestation of pregnancy; O99.344 Other mental disorders complicating childbirth; F32.A Depression, unspecified; F41.9 Anxiety disorder, unspecified; Z63.79 Other stressful life events affecting family and household; Z79.899 Other long term (current) drug therapy; Z87.59 Personal history of other complications of pregnancy, childbirth and the puerperium
CPT/HCPCS: 36415; 59409; 80053; 83033; 85025; 86850; 86870; 86880; 86900; 86901; 86922; A9270; J7120; Q0162; 86920

== ENCOUNTER 2024-03-26 20:53 | Emergency (ER) | payer OTHER ==
--- NOTE | 2024-03-26 21:11 | ED Physician Documentation ---
PD HPI CHEST PAIN - Stated complaint Stated Complaint: CHEST PX - Chief complaint Chief Complaint: Cardiac - History obtained from History obtained from: Patient - Additional information Additional information: This is a relatively healthy 33-year-old woman who is 8 days after vaginal delivery who presents with chest pain. Is been going on since last night, about 24 hours. It is intermittent stabbing pain in the center of her chest that is nonradiating that last seconds at a time. Then will repeat frequently but then go away for a while. She does not notice any triggers. She is short of breath. No acute leg pain or edema but she does have chronic ongoing shooting pains in her legs. When queried about family history she notes that her mother has a history of vasovagal syncope and dyspnea and some second- degree relatives with history of heart attacks. PD PAST MEDICAL HISTORY - Past Medical History Past Medical History: Yes Cardiovascular: None Respiratory: None Neuro: None Endocrine/Autoimmune: None GI: None SLAG DUMPER: Other : None HEENT: None Psych: Depression, ADD/ADHD Musculoskeletal: None Derm: None - Past Surgical History Past Surgical History: No - Present Medications Home Medications: Ambulatory Orders Medication Instructions Recorded Confirmed Sertraline [Zoloft] 75 mg PO DAILYWM 03/17/24 03/26/24 Vit No.129/Iron/Folic 1 tab PO DAILY 03/26/24 03/26/24 [ One Daily Tablet] - Allergies Allergies/Adverse Reactions: Allergies Allergy/AdvReac Type Severity Reaction Status Date / Time bunch Allergy Unknown Verified 03/26/24 21:08 Fish Containing Products Allergy Rash Verified 03/26/24 21:08 kiwi Allergy Unknown Verified 03/26/24 21:08 shellfish derived Allergy Rash Verified 03/26/24 21:08 tree and shrub pollen Allergy Respiratory Verified 03/26/24 21:08 salicylic acid AdvReac Intermediate Rash Verified 03/26/24 21:08 ibuprofen AdvReac Mild Nausea Verified 03/26/24 21:08 - Social History Does the pt smoke?: No Smoking Status: Never smoker Does the pt drink ETOH?: No Does the pt have substance abuse?: No PD ED PE NORMAL - Vitals Vital signs reviewed: Yes - General General: Alert and oriented X 3, No acute distress - HEENT HEENT: PERRL, EOMI - Neck Neck: Supple, no meningeal sign, No bony TTP - Cardiac Cardiac: RRR, No murmur - Respiratory Respiratory: No respiratory distress, Clear bilaterally - Abdomen Abdomen: Non tender - Back Back: No CVA TTP, No spinal TTP - Derm Derm: Normal color, Warm and dry - Extremities Extremities: No edema, No calf tenderness / cord - Neuro Neuro: Alert and oriented X 3, Normal speech Results - Vitals Vitals: Vital Signs - 24 hr 03/26/24 03/26/24 03/26/24 21:03 21:05 21:08 Temperature 37.5 C Heart Rate 107 H 96 Respiratory 18 13 Rate Blood Pressure 122/79 122/79 Blood Pressure 122/79 [Left] Blood Pressure 131/79 H [Right] O2 Saturation 99 98 03/26/24 03/26/24 21:38 22:02 Temperature 36.9 C Heart Rate 77 91 Respiratory 19 14 Rate Blood Pressure 126/84 H 141/78 H Blood Pressure [Left] Blood Pressure [Right] O2 Saturation 98 99 Oxygen O2 Source Room air - EKG (time done) 2112 EKG releavant findings:: EKG personally interpreted by author of this note. Relevant findings are: Rate: Rate (enter#) (82) Rhythm: NSR [place]: Normal Intervals: Normal ID QRS: Normal Ischemia: Normal ST segments - Labs Labs: Laboratory Tests 03/26/24 03/26/24 21:23 21:23 WBC 9.7 RBC 4.56 Hgb 10.7 L Hct 36.1 L MCV 79.2 L MCH 23.5 L MCHC 29.6 L RDW 16.5 H Plt Count 440 MPV 10.0 Neut # (Auto) 6.6 Lymph # (Auto) 2.3 [place] # (Auto) 0.5 Eos # (Auto) 0.2 Baso # (Auto) 0.1 Absolute Nucleated RBC 0.00 Nucleated RBC % 0.0 Sodium 140 Potassium 3.6 Chloride 107 Carbon Dioxide 24 Anion Gap 9.0 BUN 7 Creatinine 0.7 Estimated GFR (MDRD) 98 Glucose 96 Calcium 8.5 Total Bilirubin 0.3 AST 18 ALT 14 Alkaline Phosphatase 111 Troponin I High Sens 7.4 Total Protein 6.6 Albumin 3.6 Globulin 3.0 Albumin/Globulin Ratio 1.2 Lipase 40 - Rads (name of study) CT pulmonary angiogram was negative. Relevant Findings:: Final report received, EMP independent interpretation of test PD Medical Decision Making - ED course ED course: This is a 33-year-old woman with intermittent atypical chest pain, the fact that she is 8 days with a resting tachycardia could be concerning for PE so we will do CT angiography as well as routine cardiac testing. CBC showing moderate microcytic anemia, actually improved compared with peripartum values. CMP and troponin were normal/negative. Departure - Departure Disposition: Home, Self Care Clinical Impression: Chest pain Qualifiers: Chest pain type: unspecified Qualified Code(s): R07.9 - Chest pain, unspecified Condition: Good Record reviewed to determine appropriate education?: Yes Instructions: ED Chest Pain NonCardiac Comments: Diagnostic testing including EKG, basic labs, and troponin testing was all normal with the exception of mild anemia, actually improved since you delivered the baby. CT pulmonary angiogram to look for blood clots was also negative. Most likely this is some sort of GI process so you could try some [id number] Pepcid. Call your doctor to arrange a follow-up appointment, make the next available appointment. In the interim, return anytime if worse or if new symptoms develop. Forms: PCP List
[2024-03-26] MEDS ORDERED: iohexoL-300 100 ML VIAL ONE (21:17)
[2024-03-26 21:27] LABS: BASOPHILS # (AUTO) 0.1 10^3/uL (0.0-0.1); BASOPHILS % (AUTO) 0.5 %; EOSINOPHILS # (AUTO) 0.2 10^3/uL (0.0-0.7); EOSINOPHILS % (AUTO) 2.1 %; HCT - HEMATOCRIT 36.1 % (37.0-47.0); HGB - HEMOGLOBIN 10.7 g/dL (12.0-16.0); LYMPHOCYTES # (AUTO) 2.3 10^3/uL (1.5-3.5); LYMPHOCYTES % (AUTO) 23.3 %; MEAN CORPUSCULAR HEMOGLOBIN 23.5 pg (27.0-31.0); MEAN CORPUSCULAR HGB CONC 29.6 g/dL (32.0-36.0); MEAN CORPUSCULAR VOLUME 79.2 fL (81.0-99.0); MONOCYTES # (AUTO) 0.5 10^3/uL (0.0-1.0); MONOCYTES % (AUTO) 5.5 %; NEUTROPHILS # (AUTO) 6.6 10^3/uL (1.5-6.6); NEUTROPHILS % (AUTO) 68.1 %; PLT - PLATELET COUNT 440 10^3/uL (130-450); RED BLOOD COUNT 4.56 10^6/uL (4.20-5.40); RED CELL DISTRIBUTION WIDTH 16.5 % (12.0-15.0); WHITE BLOOD COUNT 9.7 x10^3/uL (4.8-10.8)
[2024-03-26 21:42] LABS: ALBUMIN 3.6 g/dL (3.2-5.5); ALBUMIN/GLOBULIN RATIO 1.2 (1.0-2.2); BILIRUBIN,TOTAL 0.3 mg/dL (0.2-1.0); CALCIUM 8.5 mg/dL (8.5-10.3); CREATININE 0.7 mg/dL (0.6-1.3); POTASSIUM 3.6 mmol/L (3.5-4.5); TOTAL PROTEIN 6.6 g/dL (6.4-8.9)
[2024-03-26 21:48] LABS: TROPONIN I HIGH SENSITIVITY 7.4 ng/L (2.3-14.8)
[2024-03-26] MEDS: iohexoL-300 100 ML VIAL IVP ONE (22:07)
--- NOTE | 2024-03-26 22:15 | CT Report ---
PROCEDURE: Angio Chest INDICATIONS: dyspnea, chest pain, pe protocol CONTRAST: 80ml [id number] TECHNIQUE: After the administration of intravenous contrast, 2 mm axial images were acquired from the pulmonary apices to the posterior costophrenic angles during the arterial phase. In addition, 1 mm lung kernel and 5 mm soft tissue kernel reconstructions were performed. 3-dimensional coronal oblique maximum int ensity projection (MIP) reformats, 8 mm axial MIP, and 5 mm coronal and sagittal MPR reformats were t hen performed through the thorax. For radiation dose reduction, the following was used: automated exp osure control, adjustment of mA and/or kV according to patient size. COMPARISON: None. FINDINGS: Image quality: Excellent. Large vessels: No filling defects within the opacified pulmonary arteries, accounting for motion and contrast timing. No evidence of acute aortic syndrome or aortic aneurysm. Lungs and pleura: No consolidation. No pleural effusions. No pneumothorax. No suspicious pulmonary n odules which require follow up. Mediastinum: Heart size is normal. No pericardial effusion. No large vessel abnormality. No mediastin al adenopathy by size criteria. Chest wall and lower neck: Thyroid is unremarkable. No axillary or supraclavicular adenopathy by size . Bones: No aggressive osseous abnormality. Upper Abdomen: Unremarkable. IMPRESSION: No pulmonary embolus. No acute pulmonary process. Reviewed by: Pedro Tao MD on 03/26/2024 10:14 PM PDT Approved by: Pedro Tao MD on 03/26/2024 10:14 PM PDT Station ID: [id number]
[2024-03-26 23:12] VITALS: BP 122/79; O2SAT 98
== END 2024-03-26 23:05 | disposition home or self-care (01) ==
LOC: ED 20:53
DX: O90.89 Other complications of the puerperium, not elsewhere classified (principal); R07.9 Chest pain, unspecified; O90.81 Anemia of the puerperium; Z79.899 Other long term (current) drug therapy
CPT/HCPCS: 36415; 71275; 80053; 83690; 84484; 85025; 93005; 99284; Q9967

== ENCOUNTER 2025-05-04 13:39 | Inpatient (IN) ==
[~2025-05-04 13:39] MED LIST: ACETAMINOPHEN 500 MG TABLET PO PRN; AMPICILLIN 2 GM in SODIUM CHLORIDE 0.9% MINIBAG 100 ML IV ONE; CALCIUM CARBONATE CHEW 500 MG TABLET PO PRN; CARBOPROST TROMETHAMINE 250 MCG/ML VIAL IM PRN; DOCUSATE SODIUM 100 MG CAPSULE PO PRN; LABETALOL 20 MG/4 ML SYRINGE IVP PRN; METHYLERGONOVINE 0.2 MG/ML VIAL IM PRN; METOCLOPRAMIDE 10 MG TABLET PO PRN; ONDANSETRON ODT 4 MG TABLET PO PRN; OXYTOCIN 10 UNIT/ML VIAL IM PRN; OXYTOCIN/SODIUM CHLORIDE 500 ML IV PRN; SODIUM CHLORIDE FLUSH 0.9% 10 ML SYRINGE IVP PRN; TERBUTALINE 1 MG/ML VIAL SUBQ PRN; TRANEXAMIC ACID IN NACL 1,000 MG/100 ML BAG IV PRN; hydrALAZINE INJ 20 MG/ML VIAL IVP PRN
--- NOTE | 2025-05-04 13:43 | HISTORY & PHYSICAL EXAMINATION ---
Admit History Smoking Status: Never smoker Other Maternal History Other Maternal History: 34-year-old at 38 weeks 2 days gestation here for induction of labor secondary to history of term IUFD. She has good movement. Denies loss of fluid. No HARDEN/BV or RUQP. No vaginal bleeding. Denies nausea and vomiting. Denies urinary urgency or dysuria. All other symptoms reviewed and were negative except per HPI. Course LMP: 08/09/2024 MAITE by LMP: 05/16/2025 Initial US Date 01/13/2025, US Age 22 weeks 4 days, MAITE by ultrasound: 05/15/2025 Final MAITE: 05/16/2025 by LMP consistent with 22-week ultrasound Can call Randy for delivery. Problems: Hx of term IUFD: Limited care. 37-week IUFD. Subsequent term without complication. Plan on third trimester surveillance and early induction. Debating whether she wants to be induced or going to natural labor. Discussed the risk and benefits of induction versus expectant management. CPS: Ongoing concerns as she believes if still being treated unfairly. Oldest son with severe autism requiring feeding tube, in longterm right now. Fighting over adoption versus prison. Younger daughter in foster care as well, removed from home at early age.. She gets to see the children regularly. Still working with authorities to regain custody when able. Partner still in [place]. Limited care: Frequent missed visits in this and previous pregnancies. Encouraged consistent visits. RH Negative -Will order labs at next visit and plan on 28-week visit for administration of RhoGAM. Will draw labs immediately prior to 28-week visit. ADHD: Stop Adderall in early Pre- Weight: BMI: Blood type: B- GIVE RHOGAM @ 28 WEEKS given 03/10 Antibody: Negative 01/24/2025 CBC: H/H: plt 10.5/32.7/310 01/24/25 RUB:immune VZV:non immune HBsAg: NR HepC: NR RPR/AB-EIA: NR HIV: NR PAP: 09/04/2022 normal GC/CT: 11/17/2024 negative HSV: denies in self and partner Genetic testing: NIPT ordered [ ] Negative aFP: did not draw Covid: declined 04/29 Flu: declined 04/29 FAS: 01/13/2025 [facility] Placenta: posterior w/o previa Cord:3VC JAQUELINE:WNL EFW: 499g, 40th%ile 50gm OGCT: 86 3HR GTT: TDAP: declined Breast Pump: has one 3rd trimester: H/H-11.0/35.0, Plt- 324 GBS: POSITIVE A Delivery plan: Labor induction 05/03. Contraception: NFP Meds/Allgy Home Medications Ambulatory Orders Medication Instructions Recorded Confirmed vitamins with calcium 1 tab PO QDAY #90 tabs 06/08/24 04/29/25 no.72-iron 27 mg-folic acid 1 mg tablet (M- Plus) metoclopramide HCl 10 mg tablet 10 mg PO Q6HR PRN Naus ea And 01/14/25 04/29/25 (Reglan) Vomiting #20 tabs ondansetron HCl 4 mg tablet 4 mg PO Q8H PRN nausea and 01/14/25 04/29/25 vomiting #30 tabs ferrous sulfate 325 mg (65 mg 325 mg PO Q OTHER DAY #9 0 tabs 01/24/25 04/29/25 iron) tablet (FeroSul) Allergies Allergies Allergy/AdvReac Type Severity Reaction Status Date / Time prednisone Allergy Intermediate Rash Verified 03/27/25 14:08 bunch Allergy Unknown Verified 03/27/25 10:12 Fish Containing Products Allergy Rash Verified 03/27/25 10:12 kiwi Allergy Unknown Verified 03/27/25 10:12 promethazine Allergy Anaphylaxis Verified 03/27/25 10:12 shellfish derived Allergy Rash Verified 03/27/25 10:12 tree and shrub pollen Allergy Respiratory Verified 03/27/25 10:12 salicylic acid AdvReac Intermediate Rash Verified 03/27/25 10:12 ibuprofen AdvReac Mild Nausea Verified 03/27/25 10:12 PFSH Active Problems All Active Problems (Updated 05/04/25 @ 16:56 by Yony Padilla MD) 38 weeks gestation of (Acute) Supervision of high risk in third trimester (Acute) Sjogren syndrome (Chronic) Obesity affecting , antepartum (Acute) Family disruption due to child in foster care (Acute) History of IUFD (Acute 12/12/22) Low ferritin (Acute) Microcytic anemia (Acute) Generalized pruritus of unknown etiology (Acute) Multigravida in second trimester (Acute) Rh negative state in antepartum period (Acute) Medical History Medical History (Updated 05/04/25 @ 16:56 by Yony Padilla MD) 32 weeks gestation of Supervision of high risk in second trimester Vaginal delivery x3, with 2nd a still born. Seizure Depression ADHD Surgical History Surgical History No pertinent past surgical history Family History Family History (Updated 03/27/25 @ 15:18 by Vania Lemon MD) Maternal grandfather Heart attack Maternal grandmother High blood pressure CVA (cerebral vascular accident) Father Mental disorder Aunt Seizure Mother Ad's disease Son Age: 9 Autism Daughter Normal stillborn Social History Social History (Updated 03/27/25 @ 15:28 by Vania Lemon MD) Smoking Status: Former smoker Do you dip or chew tobacco?: No Do you vape?: Yes Living arrangement: At home Living Condition: With spouse/s.o. Relationship Notes: Mati is in Living Situation Details: children in foster care, separately, as older child has extensive health care needs as he is autistic, nonverbal with feeding tube. Level: Independent Do you feel safe in your home environment?: Yes History of physical, verbal, emotional, or financial abuse?: No ETOH Use: None Substance Use: denies use and cannabis (any form) POLST Patient has POLST: No Review of Systems Status of ROS: 10 or more systems reviewed and unremarkable except as noted in history and below Physical Other Notes Labor Progress Note/Additional Text: General: Alert, oriented, no acute distress Head: Normal cephalic atraumatic Eyes: PERRLA, extraocular motions intact. Respiratory: Normal rate of respiration. No accessory muscle use, normal respiratory effort. Abdomen: Gravid, nontender, nondistended Extremities: Normal range of motion Neuro: Oriented x3. Normal movements Psych: Appropriate mood and affect. Normal judgment and insight SVE: 1/0/-3 FHT: 125 BPM baseline, moderate variability, accelerations present, no decelerations. Reactive NST [place]: quiescent Plan for Labor Plan For Labor I expect patient to be DC'd or transferred within 96 hours.: Yes Conclusion/Plan Problem List (1) History of IUFD: Plan: Plan for induction of labor due to history of IUFD. Unfavorable cervix. will start with one dose of misoprostol then swtich to oxycodone. Counselled on the risks, benefits, and alternatives of induction of labor. (2) Supervision of high risk in third trimester: Plan: Routine care. (3) 38 weeks gestation of : Plan: As above. (4) Family disruption due to child in foster care: Plan: Ongoing case with CPS. Aware of delivery. Patient and family in close contact. (5) Rh negative state in antepartum period: Plan: Rhogam workup . Lab Results 05/04/25 14:35
[2025-05-04] MEDS ORDERED: SODIUM CHLORIDE FLUSH 0.9% 10 ML SYRINGE IVP SCH (14:00)
[2025-05-04 14:53] LABS: HCT - HEMATOCRIT 33.9 % (37.0-47.0); HGB - HEMOGLOBIN 10.8 g/dL (12.0-16.0); MEAN PLATELET VOLUME 10.3 fL (7.9-10.8); NRBC ABSOLUTE COUNT (AUTO) 0.00 x10^3/uL; NUCLEATED RED BLOOD CELLS AUTO 0.0 /100WBC; PLT - PLATELET COUNT 280 10^3/uL (130-450); RED CELL DISTRIBUTION WIDTH 18.6 % (12.0-15.0)
[2025-05-04] MEDS ORDERED: AMPICILLIN 1 GM in SODIUM CHLORIDE 0.9% MINIBAG 100 ML IV SCH (18:00)
[2025-05-04] MEDS ORDERED: AMPICILLIN 2 GM in SODIUM CHLORIDE 0.9% MINIBAG 100 ML IV ONE (19:00)
[2025-05-04] MEDS: LACTATED RINGERS 1,000 ML IV PRN (19:04)
[2025-05-04] MEDS: OXYTOCIN/SODIUM CHLORIDE 500 ML IV SCH (19:04)
[2025-05-04] MEDS: AMPICILLIN 2 GM in SODIUM CHLORIDE 0.9% MINIBAG 100 ML IV ONE (19:42)
--- NOTE | 2025-05-04 23:30 | PROVIDER PROGRESS NOTE ---
Labor Progress Note Uterine Monitoring Uterine Monitoring Mode: positive External toco Contraction Intensity: positive Moderate to strong Monitoring Monitor Mode: positive External ultrasound Labor Progress Note Labor Progress Note/Additional Text: 120 beats per patient, moderate bili, accelerations present, no decelerations. Capri every 3 to 4 minutes, but difficult to trace on patient's side. Consented to cervical exam and amniotomy which was performed with a small amount of clear fluid. Cervical exam 5/50/-2. Using nitrous oxide for pain control.
[2025-05-04] MEDS: AMPICILLIN 1 GM in SODIUM CHLORIDE 0.9% MINIBAG 100 ML IV SCH (23:38)
[2025-05-05] MEDS: fentaNYL 100 MCG/2 ML VIAL IVP PRN (01:02)
[2025-05-05] MEDS ORDERED: ONDANSETRON 4 MG/2 ML VIAL IVP PRN (02:21)
[2025-05-05] MEDS ORDERED: CALCIUM CARBONATE CHEW 500 MG TABLET PO PRN (02:21)
[2025-05-05] MEDS ORDERED: WITCH HAZEL/GLYCERIN 1 PAD TOP PRN (02:21)
[2025-05-05] MEDS ORDERED: SIMETHICONE CHEW 80 MG TABLET PO PRN (02:21)
--- NOTE | 2025-05-05 02:28 | DELIVERY NOTE ---
OB Labor and Delivery Note Labor Labor: Augmented by oxytocin Infant Delivery Method Infant Delivery Method: Spontaneous vaginal delivery Cervical Ripening Method Cervical Ripening Method: Misoprostil Presentation Presentation: Vertex Nuchal Cord Nuchal Cord: None Amniotic Fluid Description Amniotic Fluid Description: Clear Laceration Laceration: None [place] : Placed in direct skin contact with mother, Bulb syringe and [place] used Cord Cord: 3 vessels Placenta Placenta: Intact Estimated Blood Loss Estimated Blood Loss (in cc): 100 Post Delivery Events Post Delivery Events: No post delivery events Delivery Comments (Free Text/Narrative) Delivery Comments (Free Text/Narrative): Preoperative Diagnoses 38 weeks gestation History of IUFD Induction of labor Postoperative Diagnoses Same Status post spontaneous vaginal delivery Delivery of live martinez Summary Patient was admitted at 38 weeks gestation for induction of labor secondary to history of term IUFD. She received 1 dose of misoprostol then had oxytocin started. She then had amniotomy for augmentation. She progressed quickly after that to complete and ready to push. Delivery Summary: Patient was placed in the dorsal lithotomy position. Upon maternal pushing the head was delivered atraumatically followed by the anterior shoulder, posterior shoulder, then the remainder of the infant's body. A male infant was delivered with APGARS of 9 at 1 minute and 9 at 5 minutes. The was placed on its mother's chest . After the cord finished pulsating, the umbilical cord was clamped times two and cut. The placenta delivered intact with three vessel cord. Placenta was not sent to pathology. Oxytocin was administered. Uterine massage was performed until uterus was deemed firm. Upon inspection of the perineum, vagina and cervix were intact. Upon re- inspection the patient was hemostatic. Uterus again massaged and found to be firm. Needle and sponge counts were correct. Patient was stable and allowed to recover in L&D room. was stable and remained in room with mother. weight is pending at this time.
[2025-05-05] MEDS ORDERED: LACTATED RINGERS 1,000 ML IV SCH (03:00)
[2025-05-05] MEDS: ACETAMINOPHEN 500 MG TABLET PO SCH (08:13)
[2025-05-05] MEDS ORDERED: FAMOTIDINE 20 MG/2 ML VIAL IVP SCH (09:00)
[2025-05-05] MEDS: IBUPROFEN 600 MG TABLET PO SCH (14:51)
[2025-05-06] MEDS: RHO(D) IMMUNE GLOBULIN 300 MCG SYRINGE IM ONE (07:43)
[2025-05-06 08:29] VITALS: TEMP 98.1
--- NOTE | 2025-05-06 14:48 | PHARMACY PROGRESS NOTE ---
Best Possible Medication History Admit Date and Time: 05/04/25 1339 Home Medications Medication Instructions Recorded Confirmed Type vitamins with calcium 1 tab PO QDAY #90 tabs 06/08/24 05/06/25 Rx no.72-iron 27 mg-folic acid 1 mg tablet (M- Plus) ferrous sulfate 325 mg (65 mg 325 mg PO Q OTHER DAY #9 0 tabs 01/24/25 05/06/25 Rx iron) tablet (FeroSul) Processed by: Nursing Medications reviewed in ED?: No Medication History completed: Yes Secondary Source(s): Physician records and Insurance records [facility] Statement: As the person ultimately responsible for medication therapy, providers are able to order a medication from an existing home medication list in [facility] via the "Reconcile Routine" prior to Confirmation of that medication by network support specialist. Such practice is discouraged except when the physician, in their clinical judgment, deems that a medical need exists for a medication without regard to previous use.
[2025-05-06 16:06] VITALS: BP 136/74; O2SAT 97
--- NOTE | 2025-05-06 16:11 | Labor Flowsheet ---
Labor Flowsheet Datetime Report Generated by CPN: 05/06/2025 16:10 Datetime: 05/06/2025 15:33 VITAL SIGNS NBP Sys/Esme/Mean (mmHg): 136 : 74 : 88 Pulse: 84 LaborFlag: Labor Datetime: 05/05/2025 17:00 SpO2 (%): 100 Datetime: 05/05/2025 01:59 STAGE 2 Pushing: Urge to Push Pushing Position: Pushing with Contractions Pushing Progress: Descent with Pushing Datetime: 05/05/2025 01:47 VAGINAL EXAM Dilatation (cm): 9.5 Effacement (%): 100 Station: 1 Exam by: dr ramirez Vaginal Bleeding: None Cervix, Consistency: Soft Cervix, Position: Anterior Datetime: 05/05/2025 01:32 UTERINE ACTIVITY Monitor Mode: External Frequency (min): 1.5-2 Quality: Moderate Duration (sec): 70-90 Pattern: Normal: <= 5 Contractions in 10 Minutes Resting Tone (Palpate): Relaxed ASSESSMENT A Monitor Mode: Telemetry FHR Baseline Rate : 115 Variability: Minimal - Undetectable to <=5 bpm Decelerations: Early Category: Category I PAIN Pain Scale: 5 Pain Presence: Intermittent Pain Type: Cramping Pain Location: Abdomen; Perineum Pain Goal: 7 Pain Relief Measures: Pain Medication Given Oxygen Method: Room Air Comfort Measures: Breathing/Relaxation Datetime: 05/05/2025 01:12 Intensity IUP (mmHg): 80-100 Accelerations: None Datetime: 05/05/2025 01:02 Contraction Comments: requests pain medication Datetime: 05/05/2025 00:31 Pain Assessment Comments: nitrous oxide tank changed Datetime: 05/05/2025 00:29 FHR Baseline Changes: No Baseline Change Datetime: 05/05/2025 00:28 Stage of : Labor Provider Reviewed Strip: Yes TEACHING Instructional Method: Verbal Plan of Care: Plan of Care Discussed Labor/Induction: Labor Stages COMMUNICATION Communication: RN at Bedside; Provider at Bedside Notification Reason: Pain; Other Communication Comments: feeling more pressure, SVE done Datetime: 05/05/2025 00:02 Pain Coping: Talking Through Contractions Patient Position/Activity: Semi-Fowlers Datetime: 05/04/2025 23:30 Monitor Interventions for UA: [place] Adjusted Membrane Status: Ruptured Membranes Rupture Method: Artificial Amniotic Fluid Color: Clear Amniotic Fluid Amount: Small Amniotic Fluid Odor: Normal Datetime: 05/04/2025 22:55 I/O Interventions: Up to BR Datetime: 05/04/2025 21:30 Respirations: 16 Temperature (C): 36.6 MATERNAL ASSESSMENT Level of Consciousness: Drowsy DTR's/Clonus: DTRs 1+ Headache: Denies Nausea/Vomiting: Denies RUQ Epigastric Pain: Denies Datetime: 05/04/2025 21:01 Medication Comments: using nitrous oxide Datetime: 05/04/2025 20:30 Monitor Interventions for FHR: Ultrasound Adjusted Datetime: 05/04/2025 19:58 MEDICATIONS Pitocin (milliunits): Increased to @ 4 Datetime: 05/04/2025 19:55 Antibiotics: Ampicillin IV 2 Gm Datetime: 05/04/2025 19:00 Comments: broken FHT d/t maternal position Datetime: 05/04/2025 18:30 Patient Care Comments: ambulating in room Datetime: 05/04/2025 18:19 Temperature Route: Oral Datetime: 05/04/2025 18:08 Membranes Ruptured Date/Time: 05/04/2025 23:09 (Annotations: Data stored by [facility] on behalf of user) Cervical Ripening Agents: Cytotec @ Datetime: 05/04/2025 14:35 PATIENT CARE IV/Blood Work: IV Started; Labs Drawn with IV Start
--- NOTE | 2025-05-10 14:18 | Discharge Summary ---
Discharge Summary Admit Date: 05/05/25 Discharge Date: 05/06/25 Discharging Provider: Trisha Ellis MD [facility] History of Present Illness: Admission Diagnosis: - SIUP at 38w2d - H/o IUFD - Rh neg Discharge Diagnosis: - Same, delivered Procedures: Hospital Course: Maynor is a 34 yo who prsented at 38w2d for IOL in the setting of prior term IUFD. She received one dose of misoprstol, followed by pitocin augmentation and then AROM. She had an uncomplicated with an EBL of 100cc. Her course was uncomplicated. She was discharged home with baby on PPD#1. Condition on Discharge: SUBJECTIVE: She feels. Pain is controlled with current medications. The baby is doing well. Baby is feeding via . She is ambulating well, tolerating normal diet, urinating without difficulty. Lochia is reported as light. OBJECTIVE: Vital signs reviewed GENERAL: NAD CHEST: non labored respirations ABD: soft, non tender, fundus firm EXT: no lower extremity edema; No evidence of DVT LAB & IMAGING STUDIES: See below PLAN: Plan for discharge home with follow up in clinic in 1 week. Reviewed home care instructions and medications. Patient counseled regarding signs and symptoms of infection, excessive bleeding, vaginal rest and activity restrictions. Contraceptive plans to be formalized at visit. Discussed that additional support is available in our clinic if needed. ALLERGIES Allergies Allergy/AdvReac Type Severity Reaction Status Date / Time prednisone Allergy Intermediate Rash Verified 03/27/25 14:08 bunch Allergy Unknown Verified 03/27/25 10:12 Fish Containing Products Allergy Rash Verified 03/27/25 10:12 kiwi Allergy Unknown Verified 03/27/25 10:12 promethazine Allergy Anaphylaxis Verified 03/27/25 10:12 shellfish derived Allergy Rash Verified 03/27/25 10:12 tree and shrub pollen Allergy Respiratory Verified 03/27/25 10:12 salicylic acid AdvReac Intermediate Rash Verified 03/27/25 10:12 ibuprofen AdvReac Mild Nausea Verified 03/27/25 10:12 MEDICATIONS Ambulatory Orders Medication Instructions Recorded Confirmed vitamins with calcium 1 tab PO QDAY #90 tabs 06/08/24 05/06/25 no.72-iron 27 mg-folic acid 1 mg tablet (M- Plus) ferrous sulfate 325 mg (65 mg 325 mg PO Q OTHER DAY #9 0 tabs 01/24/25 05/06/25 iron) tablet (FeroSul) LABS 05/04/25 14:35 Discharge Plan Discharge Patient Disposition: Home, Self Care Prescriptions: Continued M- Plus 27 mg iron- 1 mg tablet 1 tab PO QDAY Qty: 90 4RF ferrous sulfate [FeroSul] 325 mg (65 mg iron) tablet 325 mg PO Q OTHER DAY Qty: 90 4RF Rx Instructions: best if taken in the morning. Discontinued metoclopramide HCl [Reglan] 10 mg tablet 10 mg PO Q6HR PRN (Reason: Nausea And Vomiting) Qty: 20 1RF Rx Instructions: administer 30 minutes before meals ondansetron HCl 4 mg tablet 4 mg PO Q8H PRN (Reason: nausea and vomiting) Qty: 30 1RF Print Language: Congolese Patient Instructions: After a Vaginal , Pain After Childbirth, Breast Care After Follow-up Care: Yony Padilla MD [Primary Care Provider, Obstetrics/Gynecology] Vitals documented within 30 minutes of discharge?: Yes
== END 2025-05-06 16:00 | disposition home or self-care (01) | DRG 807 ==
LOC: FBP
PROVIDERS: ADMIT Obstetrics & Gynecology; ATTEND Obstetrics & Gynecology
DX: Z3A.38 38 weeks gestation of pregnancy; Z87.891 Personal history of nicotine dependence; O26.893 Other specified pregnancy related conditions, third trimester; O99.824 Streptococcus B carrier state complicating childbirth; Z67.21 Type B blood, Rh negative; O09.30 Supervision of pregnancy with insufficient antenatal care, unspecified trimester; O99.214 Obesity complicating childbirth; O99.344 Other mental disorders complicating childbirth; Z37.0 Single live birth; F90.9 Attention-deficit hyperactivity disorder, unspecified type